=== PATIENT | male | born 1945 | race Caucasian/White ===

== ENCOUNTER → 2017-12-08 | Outpatient (CLI) | payer MEDICARE | LOC: M ADAMS 09:25 | DX: J20.9 Acute bronchitis, unspecified (principal); R06.02 Shortness of breath | CPT/HCPCS: 71046 ==

== ENCOUNTER → 2018-10-01 | Outpatient (CLI) | payer MEDICARE ==
[~2018-10-01] MED LIST: IBUP800T; LEVA500T; MUSINEX; NICO21DI4; PERC5TAB8
--- NOTE | 2018-10-01 12:12 | REP ---
Chest two views HISTORY: Acute bronchitis Comparison: 12/08/2017 The lungs are clear. There is blunting of the left costophrenic angle due to pleural thickening. The heart is normal in size. The pulmonary vasculature is normal in appearance. The bony structure is intact. IMPRESSION: No acute disease. Electronically Signed by Rigo Nash MD 10/01/2018 12:03 P
== END ==
LOC: M ADAMS 11:44
PROVIDERS: ATTEND Physician Assistant Medical
DX: J20.9 Acute bronchitis, unspecified (principal)

== ENCOUNTER → 2018-10-01 | Outpatient (REF) | payer MEDICARE ==
[2018-10-01 20:12] LABS: BASO % 0.2 % (0.0-1.0); HEMATOCRIT 52.4 % (42.0-52.0); HEMOGLOBIN 17.2 g/dl (13.5-17.5); LYMPH # 1.4 10^3/uL (1.5-4.5); LYMPH % 17.2 % (24.0-44.0); MEAN CORPUSCULAR HEMOGLOBIN 33.3 pg (27.0-33.0); MEAN CORPUSCULAR HGB CONC 32.8 g/dl (32.0-36.5); MEAN CORPUSCULAR VOLUME 101.4 fl (80.0-96.0); MONO # 0.6 10^3/uL (0.0-0.8); MONO % 7.1 % (0.0-5.0); NEUTROPHILS # 6.1 10^3/uL (1.8-7.7); NEUTROPHILS % 75.1 % (36.0-66.0); PLATELET COUNT, AUTOMATED 181 10^3/uL (150-450); RED BLOOD COUNT 5.17 10^6/uL (4.30-6.10); WHITE BLOOD COUNT 8.1 10^3/uL (4.0-10.0)
== END ==
LOC: M LAB REF 19:21
PROVIDERS: ATTEND Physician Assistant Medical
DX: J20.9 Acute bronchitis, unspecified (principal)

== ENCOUNTER 2019-11-19 15:30 | Emergency (ER) | payer MEDICARE ==
[~2019-11-19] VITALS: Ht 188 cm; Wt 118.2 kg
[2019-11-19] MEDS ORDERED: NS 1,000 ML IV ONE (16:45)
[2019-11-19 17:21] LABS: BASO # 0.1 10^3/uL (0.0-0.2); BASO % 0.5 % (0.0-1.0); EOS # 0.1 10^3/uL (0.0-0.5); EOS % 0.5 % (0.0-3.0); HEMATOCRIT 53.1 % (42.0-52.0); HEMOGLOBIN 17.8 g/dl (13.5-17.5); LYMPH # 1.5 10^3/uL (1.5-5.0); LYMPH % 12.3 % (24.0-44.0); MEAN CORPUSCULAR HEMOGLOBIN 33.4 pg (27.0-33.0); MEAN CORPUSCULAR HGB CONC 33.5 g/dl (32.0-36.5); MEAN CORPUSCULAR VOLUME 99.6 fl (80.0-96.0); MONO # 0.6 10^3/uL (0.0-0.8); MONO % 5.3 % (0.0-5.0); NEUTROPHILS # 9.7 10^3/uL (1.5-8.5); NEUTROPHILS % 80.8 % (36.0-66.0); PLATELET COUNT, AUTOMATED 109 10^3/uL (150-450); RED BLOOD COUNT 5.33 10^6/uL (4.30-6.10); WHITE BLOOD COUNT 11.9 10^3/uL (4.0-10.0)
[2019-11-19 17:35] LABS: CALCIUM LEVEL 9.4 MG/DL (8.8-10.2); CREATININE FOR GFR 1.61 MG/DL (0.70-1.30); GLOMERULAR FILTRATION RATE 45.1 (>42); POTASSIUM SERUM 5.8 MEQ/L (3.5-5.1)
--- NOTE | 2019-11-19 17:59 | REP ---
LUMBAR SPINE SERIES: FIVE VIEWS. HISTORY: Low back pain and tingling in the feet. FINDINGS: Lumbar vertebral body heights are preserved. There is straightening of the normal lumbar lordosis. There is degenerative disc narrowing at L3-4, and to a lesser extent, at L4-5 with discogenic spurring noted, particularly at L3-4. There is evidence of calcification of the margin of a posteriorly bulging disc at L3-4, and lateral film suggests spinal stenosis at L3-4. Similar less pronounced changes seen at L2-3. No spondylolysis or spondylolisthesis is seen. There is some facet hypertrophy at L5-S1 and L4-5 bilaterally, mild in degree. Sacrum and SI joints are intact. Psoas margins are symmetric. The abdominal aorta appears tortuous and may be ectatic. It is faintly calcified. There are clips in the right upper quadrant of the abdomen. IMPRESSION: 1. Degenerative disc disease. Findings suggestive of spinal stenosis at L3-4 and possibly at L2-3 due to bulging discs. 2. Tortuous and possibly ectatic, faintly calcified abdominal aorta. 3. No acute bony abnormality. Electronically Signed by Job Tineo MD 11/19/2019 06:47 P
[2019-11-19 18:44] LABS: POTASSIUM SERUM 4.3 MEQ/L (3.5-5.1)
[2019-11-19 19:15] VITALS: BP 141/94
--- NOTE | 2019-11-20 13:03 | ED PDOC ---
Post-Departure Follow-Up dr paz faxed formal report of ls spine for fu Chapin Cisneros MD November 20, 2019 13:03
== END 2019-11-19 19:20 | disposition home or self-care (01) ==
LOC: M ED 15:30
DX: M51.37 Other intervertebral disc degeneration, lumbosacral region (principal); S39.012A Strain of muscle, fascia and tendon of lower back, initial encounter; X50.0XXA Overexertion from strenuous movement or load, initial encounter; Y92.89 Other specified places as the place of occurrence of the external cause; E86.0 Dehydration; R94.5 Abnormal results of liver function studies; G43.909 Migraine, unspecified, not intractable, without status migrainosus; K21.9 Gastro-esophageal reflux disease without esophagitis; F17.200 Nicotine dependence, unspecified, uncomplicated

== ENCOUNTER 2019-11-23 12:36 | Inpatient (IN) | payer MEDICARE ==
[~2019-11-23] VITALS: Ht 188 cm; Wt 114.0 kg
[2019-11-23] MEDS ORDERED: NS 1,000 ML IV ONE (13:15)
[2019-11-23 13:47] LABS: BASO % 0.4 % (0.0-1.0); EOS # 0.4 10^3/uL (0.0-0.5); EOS % 4.2 % (0.0-3.0); HEMATOCRIT 47.2 % (42.0-52.0); HEMOGLOBIN 16.1 g/dl (13.5-17.5); LYMPH % 21.5 % (24.0-44.0); MEAN CORPUSCULAR HEMOGLOBIN 33.1 pg (27.0-33.0); MEAN CORPUSCULAR HGB CONC 34.1 g/dl (32.0-36.5); MEAN CORPUSCULAR VOLUME 97.1 fl (80.0-96.0); MONO # 0.8 10^3/uL (0.0-0.8); MONO % 8.4 % (0.0-5.0); PLATELET COUNT, AUTOMATED 127 10^3/uL (150-450); RED BLOOD COUNT 4.86 10^6/uL (4.30-6.10); WHITE BLOOD COUNT 9.2 10^3/uL (4.0-10.0)
[2019-11-23 14:03] LABS: ALBUMIN 3.3 GM/DL (3.2-5.2); ALT/SGPT 52 U/L (12-78); BILIRUBIN,DIRECT 0.2 MG/DL (0.0-0.2); BILIRUBIN,TOTAL 0.7 MG/DL (0.2-1.0); BLOOD UREA NITROGEN 44 MG/DL (7-18); CALCIUM LEVEL 8.8 MG/DL (8.8-10.2); CARBON DIOXIDE LEVEL 26 MEQ/L (21-32); CHLORIDE LEVEL 107 MEQ/L (98-107); CPK CREATINE PHOSPHOKINASE 222 U/L (39-308); CREATININE FOR GFR 2.62 MG/DL (0.70-1.30); GLOMERULAR FILTRATION RATE 25.7 (>42); GLUCOSE, FASTING 104 MG/DL (70-100); POTASSIUM SERUM 4.6 MEQ/L (3.5-5.1); SODIUM LEVEL 138 MEQ/L (136-145); TOTAL PROTEIN 6.9 GM/DL (6.4-8.2)
[2019-11-23] MEDS ORDERED: NS 500 ML IV ONE (14:15)
--- NOTE | 2019-11-23 15:29 | REP ---
REASON: Acute renal failure. There are no priors for comparison. Prior contrast-enhanced chest CT, 01/22/2010, was reviewed. The descending thoracic aorta seen on this abdominal CT is massively ectatic, now measuring 6.5 cm, previously under 3 cm on the imaged portion seen on the prior exam. In addition, the aneurysm continues to just proximal to the aortoiliac bifurcation. At the bifurcation, the maximal AP dimension is 3.4 cm. Without intravenous contrast, I cannot assess properly for an acute aortic dissection. I suspect there is an acute aortic dissection, but contrast would be necessary for further evaluation. Limited evaluation of the liver, spleen, pancreas, adrenal glands, and kidneys show no gross abnormalities. Limited evaluation of the bowel loops and their mesenteries show no gross abnormalities. No free fluid or free air is seen in the abdomen or pelvis. There is sigmoid colon diverticulosis. There is no evidence of an intrapelvic or intra-abdominal mass or adenopathy. Bone window technique throughout the examination shows the osseous structures to be within normal limits. The lung bases are clear. 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 Contrast-enhanced examination is recommended. The finding might be critical. These findings were discussed with Lincoln Noe, the patient's healthcare provider at the time of this dictation. A follow up phone call was placed to Mr. Noe who relayed that Dr. Miller will evaluate the patient in the ER at this time and further determination on whether they wish to order a contrast enhanced examination will be made. Electronically Signed by Fernando Aguirre DO 11/23/2019 03:39 P
[2019-11-23] MEDS: NS 1,000 ML IV SCH ×2 (15:34→15:35)
[2019-11-23 15:35] LABS: OSMOLALITY SERUM 296 MOSM/KG (280-301)
[2019-11-23 15:36] LABS: CK-MB VALUE MASS 1.4 NG/ML (<3.6); MB/CK RELATIVE INDEX 0.63 (< OR =4); TROPONIN I < 0.02 NG/ML (< 0.10)
[2019-11-23] MEDS ORDERED: ACETAMINOPHEN TAB 650MG DOSE (2X325MG) PO PRN (16:00)
--- NOTE | 2019-11-23 16:19 | HPEPDOC ---
General Date of Admission 11/23/2019 Date of Service: November 23, 2019 Chief Complaint The patient is a 74-year-old male who presented to the hospital for follow up lab work. History of Present Illness Patient is a 74-year-old male with no significant past medical history and has not seen a provider in greater than 10 years. . He initially presented to the ER on 11/19/2019 with complaints of worsening weakness and cramping of both his lower extremities and back pain. Patient reports that at the time he was doing yard work in the backyard involving cutting tree branches manually. Patient noted that he was experiencing cramping of his legs after he sat down, soon progressed to worsening weakness of his lower extremities and pain. Patient came to the emergency room for further evaluation and workup. Upon arrival to emergency room, patient had reported that his strength has improved and pain was resolving. Patient had lab work completed that had revealed a creatinine of 1.6 and a normal CK level. Patient was advised to remain inpatient for IV fluid hydration. However, he refused to stay and was advised to follow up for repeat lab work on Sunday. Patient reported that on to Sunday. He was experiencing diarrhea about 5-10 episodes which prevented him from returning back for follow-up on Sunday. His niece, who is a registered nurse advised him to return to the hospital for follow-up lab work today (Wednesday 11/22). Upon arrival repeat lab work had revealed worsening creatinine to 2.6 with still normal CK. Patient had reported that today he was experiencing some discoloration of his right second digit toe. Patient had a CT scan of his abdomen, pelvis completed without contrast to evaluate his kidneys; report was pending. Hospitalist service was contacted for evaluation and admission for acute kidney injury. Currently patient denies any headache, nausea, vomiting, chest pain, shortness of breath, any significant change in his baseline cough. He denies any palpitations. Denies any active diarrhea. Denies any constipation or urinary discomfort. Patient does report decreased urination. . He also notes that he hasnt been consuming much fluid over the last several days. Denies any fevers / chills. Patient has noted that for his back pain, over last several days, hes been taking Aleve, Excedrin and Tylenol. Currently, he reports that his back pain has significantly improved but not resolved. Patient reports his appetite is currently normal. Denies any significant changes in his weight. He does not have a primary care provider is in the process of establishing care with Dr. Mcclendon. After evaluation, preliminary results of CT scan became available and show possibility of dissecting aortic aneurysm. Case was discussed with Dr. Miller and images were reviewed; unlikely that this is acute, however no emergent intervention at this time. Home Medications No Active Prescriptions or Reported Meds Allergies Coded Allergies: No Known Allergies (Verified , 01/18/10) Past Medical History Medical History Patient reports a remote history of pneumonia, pleurisy greater than 10 years ago Surgical History Cholecystectomy Appendectomy Family History - Family history was reviewed and is currently noncontributory - No history of malignancies Social History - Denies the use of alcohol, tobacco or illicit drugs - Denies recent travel or sick contacts - Lives with - Occupation; owned a [employer] Review of Systems Other systems 10 point review of systems complete, all negative otherwise stated in HPI Vital Signs - Vitals: BP 114/73, HR 73, RR 20, Sat 98%RA, Temp 97.9F - General: Lying in bed, Does not appear to be in any distress, Speaking in full sentences, AAOx3 - HEENT: NC, AT, PERRLA, EOMI - CVS: RRR, +S1S2 - Lungs: Fair air entry bilaterally, No appreciable wheezing / rales / rhonchi - Abdomen: Soft, Non-distended, Non-tender - Extremities: No lower extremity edema, No calf tenderness - Neuro: No focal motor or sensory deficit - Skin: No visible rashes Laboratory Data Labs 24H Laboratory Tests 2 11/23/19 13:24: Immature Granulocyte % (Auto) 0.5, Neutrophils (%) (Auto) 65.0, Lymphocytes (%) (Auto) 21.5L, Monocytes (%) (Auto) 8.4H, Eosinophils (%) (Auto) 4.2H, Basophils (%) (Auto) 0.4, Neutrophils # (Auto) 6.0, Lymphocytes # (Auto) 2.0, Monocytes # (Auto) 0.8, Eosinophils # (Auto) 0.4, Basophils # (Auto) 0.0, Nucleated Red Blood Cells % (auto) 0.0, Anion Gap 5L, Glomerular Filtration Rate 25.7L, Osmolality 296, Lactic Acid Level 1.2, Calcium Level 8.8, Total Bilirubin 0.7, Direct Bilirubin 0.2, Aspartate Amino Transf (AST/SGOT) 36, Alanine Aminotransferase (ALT/SGPT) 52, Alkaline Phosphatase 76, Total Creatine Kinase 222, Creatine Kinase MB 1.4, Creatine Kinase MB Relative Index 0.63, Troponin I < 0.02, Total Protein 6.9, Albumin 3.3, Albumin/Globulin Ratio 0.92L 11/23/19 14:02: Urine Random Osmolality 703 11/23/19 14:05: Urine Color YELLOW, Urine Appearance HAZY, Urine pH 5.0, Urine Specific [place] 1.020, Urine Protein 2+H, Urine Glucose (UA) NEGATIVE, Urine Ketones NEGATIVE, Urine Blood 2+H, Urine Nitrite NEGATIVE, Urine Bilirubin NEGATIVE, Urine Urobilinogen 0.2, Urine Leukocyte Esterase NEGATIVE, Urine WBC (Auto) 2, Urine RBC (Auto) 3, Urine Hyaline Casts (Auto) 0, Urine Bacteria (Auto) NEGATIVE, Urine Squamous Epithelial Cells 0, Urine Amorphous Sediment SMALLH, Urine Mucus (Auto) SMALL, Urine Sperm (Auto) CBC/BMP Laboratory Tests 11/23/19 13:24 Plan / VTE VTE Prophylaxis Ordered?: Yes Plan Plan Abdominal aortic aneurysm; possibly with dissection based on imaging - Remains hemodynamically stable - Currently has improvement of back pain - CT abdomen / pelvis without contrast (re: elevated Cr); preliminary report reveals possibly aortic aneurysm dissection - Will ensure BP and HR remain optimized - Case was discussed with Dr. Miller who will also be on consultation; appreciate their input - At this point; does not require emergent intervention given no significant match to clinical picture (ie: severely elevated blood pressures with intolerable pain) Acute kidney injury - possibly 2/2 pre-renal 2/2 poor oral intake / diarrhea, possibly 2/2 reduced blood flow, possibly 2/2 intra-renal etiology 2/2 chronic renal disease - Cr baseline unclear; last Cr compared against was 1.0 in 2009 - Cr on 11/18 on 1.6; has deteriorated since that point to 2.6 currently - After checking urine electrolytes, FENa: 0.5% - Will check renal US and renal doppler flow - Will avoid nephrotoxic medications - s/p 1.5 Liters of NS in ER - Will c/w IV fluid hydration Bilateral LE weakness - possibly 2/2 PVD - Presented on 11/19/2019 with back pain and progressive LE weakness / pain - Physical does reveal pulses at bilateral lower extremities - Will check duplex arterial US of bilateral LE Nicotine dependence - Patient has been strongly advised for nicotine / smoking cessation Obesity - BMI 30.9 - Complicating medical care DVT prophylaxis - Will start TEDs/Sequentials GINA SCALES MD November 23, 2019 15:43
[2019-11-23] MEDS ORDERED: NICOTINE 21MG/24HR 1 EA TRANSDERMAL TD ONE (16:45)
[2019-11-23 16:47] LABS: CHOLESTEROL LEVEL 172 MG/DL (<200); CHOLESTEROL RISK RATIO 4.777 (<5); HDL CHOLESTEROL 36 MG/DL (>40); LDL CHOLESTEROL 108 MG/DL (<100); NON-HDL-C 136 MG/DL; TRIGLYCERIDES LEVEL 138 MG/DL (<150)
[2019-11-23 17:55] LABS: HEMOGLOBIN A1c 5.5 %
[2019-11-23 18:00] VITALS: BP 158/77
--- NOTE | 2019-11-23 18:09 | REPVR ---
PROCEDURE INFORMATION: Exam: US Duplex Artery and Vein of the Abdominal and/or Reproductive Organs, Complete Exam date and time: 11/23/2019 5:37 PM Age: 74 years old Clinical indication: Abnormal findings; Abnormal lab test; Abnormal bun &/or creatinine; Additional info: Kris TECHNIQUE: Imaging protocol: Real-time duplex ultrasound scan of the arterial and venous flow of the abdominal and/or reproductive organs with B-mode, color Doppler flow and spectral waveform analysis with image documentation. Exam focused on the region of clinical concern. Complete exam. Duplex images required to evaluate vascular conditions. COMPARISON: No relevant prior studies available. FINDINGS: FINDINGS: Aortic Doppler: Aorta at the level of the renal arteries: PSV is 45 cm/s. Right renal Doppler: The right kidney is 12.6 cm in length. Renal artery: Origin/proximal: PSV 74 cm/s. Mid: PSV 70 cm/s. Distal: PSV 61 cm/s. Parenchyma: Segmental: Resistive indices are between 0.65 and 0.69. Acceleration times are between 0.42 and 0.50 s. Rounded intrarenal waveforms. Renal vein: Patent. RAR is 1.6. Left renal Doppler: The left kidney is 12.9 cm in length. Renal artery: Origin/proximal: PSV 124 cm/s. Mid: PSV 111 cm/s. Distal: PSV 95 cm/s. Parenchyma: Segmental: Resistive indices are between and 0.61 and 0.65. Acceleration times are between 0.42 and 0.67 s. Rounded intrarenal waveforms. Renal vein: Patent. RAR is 2.7. Reference: Renal artery peak systolic velocities (PSV). Normal is less than 180 cm/s. Resistive indices (RI). Normal value is ~0.60. The upper limit of normal is 0.70. RAR (renal to aortic ratio). Normal is <3.5. IMPRESSION: . No imaging findings to suggest renovascular hypertension. Electronically signed by: Maurice Flores On 11/23/2019 18:08:55 PM
[2019-11-23 18:52] LABS: CALCIUM LEVEL 8.6 MG/DL (8.8-10.2); CREATININE FOR GFR 2.42 MG/DL (0.70-1.30); GLOMERULAR FILTRATION RATE 28.2 (>42); MAGNESIUM LEVEL 2.1 MG/DL (1.8-2.4); POTASSIUM SERUM 4.2 MEQ/L (3.5-5.1)
[2019-11-23 20:00] VITALS: BP 119/73
[2019-11-24] VITALS: BP 116/77
[2019-11-24] MEDS: NS 1,000 ML IV SCH ×4 (03:39→21:53)
[2019-11-24 04:00] VITALS: BP 131/76
[2019-11-24 06:09] LABS: BASO # 0.1 10^3/uL (0.0-0.2); BASO % 0.6 % (0.0-1.0); EOS # 0.4 10^3/uL (0.0-0.5); EOS % 5.1 % (0.0-3.0); HEMATOCRIT 41.4 % (42.0-52.0); LYMPH # 2.1 10^3/uL (1.5-5.0); LYMPH % 26.7 % (24.0-44.0); MEAN CORPUSCULAR HEMOGLOBIN 33.8 pg (27.0-33.0); MEAN CORPUSCULAR HGB CONC 33.8 g/dl (32.0-36.5); MONO # 0.8 10^3/uL (0.0-0.8); MONO % 9.8 % (0.0-5.0); NEUTROPHILS # 4.6 10^3/uL (1.5-8.5); NEUTROPHILS % 57.4 % (36.0-66.0); PLATELET COUNT, AUTOMATED 141 10^3/uL (150-450); RED BLOOD COUNT 4.14 10^6/uL (4.30-6.10)
[2019-11-24 06:24] LABS: CALCIUM LEVEL 8.3 MG/DL (8.8-10.2); CREATININE FOR GFR 2.34 MG/DL (0.70-1.30); GLOMERULAR FILTRATION RATE 29.3 (>42); MAGNESIUM LEVEL 2.1 MG/DL (1.8-2.4); POTASSIUM SERUM 4.8 MEQ/L (3.5-5.1)
[2019-11-24 08:00] VITALS: BP 122/72
--- NOTE | 2019-11-24 08:00 | CR.PDOC ---
General Date of Consultation: November 24, 2019 Consultation REASON FOR CONSULTATION/CHIEF COMPLAINT: Incidental finding of thoracoabdominal aneurysm on noncontrast CT abdomen and pelvis HISTORY OF PRESENT ILLNESS: This is a very pleasant 74-year-old gentleman who was admitted for worsening renal insufficiency and had a noncontrast CT of the abdomen and pelvis in the ER during his workup. Incidentally, a finding of 6.5 cm thoracoabdominal aneurysm prompted a vascular surgery consult. There was concern by the radiologist that the patient may be having an acute dissection. I reassured both the ER physician and the hospitalist that with systolic blood pressure of 120, normotensive, and little to no back pain, and acute dissection would be unlikely. Also, it is less likely to have dissection acutely and an aneurysmal vessel, but more likely that he may have had a dissection in the past that led to an aneurysmal vessel. It is possible he did have a dissection at one point, but we cannot tell this from the noncontrast CT. The subtle changes in grayscale within the aorta could be due to a dissection, could be due to mural thrombus, could be due to blood circulation. We will need an contrast CT of the chest abdomen and pelvis to fully evaluate the thoracoabdominal aneurysm. This can be done once the patient's renal function improves. To rule out limited bloodflow to one or both kidneys as a source of renal insufficiency we obtained a renal duplex ultrasound. There was good flow to both kidneys. I believe the patient's renal function is more likely related to dehydration, worsened after days of diarrhea, and will hopefully it will improve with supportive care, IV fluids, and if needed a nephrology consult. We will continue to follow along. I discussed the natural history of aortic aneurysms with the patient. He said he is familiar with the phenomenon as he has had friends who've had aortic aneurysms, some that of ruptured. He also describes experience with aneurysm rupture in cows, which I have not heard of, but was interesting to discuss. Additionally, I did review the patient's arterial duplex. He has triphasic flow to the knee bilaterally, but some tibial disease bilaterally, worse on the right. The distal anterior tibial artery is not visualized, which may be contributing to the discoloration in the right second toe, as this is the Angiosome for the dorsal foot and second toe. However, overall the patient's A BIs are greater than 1 bilaterally and he seems to have more than adequate flow with very warm feet and less than 1 second capillary refill on exam. ALLERGIES: Please see below. HOME MEDICATIONS: Please see below. PAST MEDICAL HISTORY: 1. Tobacco abuse 2. Peripheral vascular disease 3. Thoracoabdominal aneurysm PAST SURGICAL HISTORY: 1. Cholecystectomy 2. Appendectomy FAMILY HISTORY: Heart disease SOCIAL HISTORY: Patient lives alone. He was smoking regularly up until this admission. He o ccasionally drinks wine, but not every day. He denies illicit drug use. REVIEW OF SYSTEMS: CONSTITUTIONAL: Positive fatigue HEENT: No new vision changes CARDIOVASCULAR: No chest pain RESPIRATORY: Occasional shortness of breath with exertion, occasional cough GENITOURINARY: No dysuria MUSCULOSKELETAL: Occasional back pain, blue discoloration right second toe GASTROINTESTINAL: Denies nausea vomiting constipation. Positive recent episodes of diarrhea SKIN: Denies rashes or skin cancer NEUROLOGICAL: Denies headaches or seizures. Denies TIA or CVA PSYCHIATRIC: Denies anxiety or depression ENDOCRINE: Denies diabetes or thyroid disease HEMATOLOGIC/LYMPHATIC: Denies anemia ALLERGIC/IMMUNOLOGIC: Denies immunologic disease is PHYSICAL EXAMINATION: VITAL SIGNS: Please see below. GENERAL APPEARANCE: Medically stable. HEENT: Normocephalic. Poor dentition. RESPIRATORY: Slightly coarse breath sounds bilaterally. No wheezes auscultated. CARDIOVASCULAR: Regular rate and rhythm. ABDOMEN: Soft nontender nondistended. EXTREMITIES: Bilateral lower extremities are warm and well perfused. The pulses are not palpable but he has signals at the DP and PT bilaterally: Monophasic right TP, triphasic right PT, biphasic left DP, biphasic left PT. The right second toe does in fact have some distal blue discoloration, but is minimally tender. The other toes do not appear to be discolored. No wounds or ulcers are noted. NEUROLOGICAL: Alert and oriented 3. Moves all extremities equally. No focal deficits noted. PSYCHIATRIC: Pleasant and cooperative with the exam. LABORATORY DATA: Please see below. ASSESSMENT/PLAN: Very pleasant 74-year-old gentleman with incidental finding of 6.5 cm thoracoabdominal aortic aneurysm 1. Once renal function has improved, the patient will need a CTA of the chest abdomen and pelvis to fully evaluate the extent of the thoracoabdominal aneurysm. 2. For now, no urgent imaging is needed. Eventually, if the patient requires repair, we will set him up with a referral to [facility]. 3. Regarding his right second toe, he is fairly asymptomatic. He has no ulceration present. This could be related to an embolic event or it could be related to chronic vascular disease in the right anterior tibial artery. At this point, I do not recommend urgent intervention has any endovascular interrogation we would perform would require contrast and the patient has acute renal failure. However, if his toe does not heal, if he develops ulcerations, if he develops worsening pain or starts to develop claudication, we could certainly perform an arteriogram at a later date and see if there is anything we can improve in his distal flow. No urgency at this time. 4. We would recommend aspirin and Plavix daily for life for chronic vascular disease. 5. Strongly recommend discontinuing nicotine patch. Instead, would recommend Chantix or Wellbutrin as pharmacologic aid to smoking cessation as needed. Also anxiety medicine can be prescribed while the patient is in the hospital. Nicotin e patches cause severe vasoconstriction of the distal fingers and toes, hands and feet. It is continuous vasoconstriction, unlike smoking which provides breaks between nicotine doses. A 21 mg nicotine patch is extremely detrimental to someone with any kind of peripheral vascular disease. We appreciate the opportunity to participate in the care of this patient. Vital Signs/I&O Vital Signs Date Time Temp Pulse Resp B/P (MAP) Pulse Ox O2 Delivery O2 Flow Rate FiO2 11/24/19 04:00 97.8 71 19 131/76 (94) 99 Room Air I&O- Last 24 Hours up to 6 AM 11/24/19 05:59 Intake Total 2820 ml Output Total 600 ml Balance 2220 ml Laboratory Data Labs 24H Laboratory Tests 2 11/23/19 13:24: Immature Granulocyte % (Auto) 0.5, Neutrophils (%) (Auto) 65.0, Lymphocytes (%) (Auto) 21.5L, Monocytes (%) (Auto) 8.4H, Eosinophils (%) (Auto) 4.2H, Basophils (%) (Auto) 0.4, Neutrophils # (Auto) 6.0, Lymphocytes # (Auto) 2.0, Monocytes # (Auto) 0.8, Eosinophils # (Auto) 0.4, Basophils # (Auto) 0.0, Nucleated Red Blood Cells % (auto) 0.0, Anion Gap 5L, Glomerular Filtration Rate 25.7L, Estimated Mean Plasma Glucose 111H, Hemoglobin A1c 5.5, Osmolality 296, Lactic Acid Level 1.2, Calcium Level 8.8, Total Bilirubin 0.7, Direct Bilirubin 0.2, Aspartate Amino Transf (AST/SGOT) 36, Alanine Aminotransferase (ALT/SGPT) 52, Alkaline Phosphatase 76, Total Creatine Kinase 222, Creatine Kinase MB 1.4, Creatine Kinase MB Relative Index 0.63, Troponin I < 0.02, Total Protein 6.9, Albumin 3.3, Albumin/Globulin Ratio 0.92L, Triglycerides Level 138, Total Cholesterol 172, LDL Cholesterol 108H, Non-HDL Cholesterol (LDL + VLDL) 136, Total HDL Cholesterol 36L, Cholesterol/HDL Ratio 4.777 11/23/19 14:02: Urine Random Osmolality 703, Urine Random Creatinine 201.0, Urine Random Sodium 54, Urine Random Urea Nitrogen 1247 11/23/19 14:05: Urine Color YELLOW, Urine Appearance HAZY, Urine pH 5.0, Urine Specific [place] 1.020, Urine Protein 2+H, Urine Glucose (UA) NEGATIVE, Urine Ketones NEGATIVE, Urine Blood 2+H, Urine Nitrite NEGATIVE, Urine Bilirubin NEGATIVE, Urine Urobilinogen 0.2, Urine Leukocyte Esterase NEGATIVE, Urine WBC (Auto) 2, Urine RBC (Auto) 3, Urine Hyaline Casts (Auto) 0, Urine Bacteria (Auto) NEGATIVE, Urine Squamous Epithelial Cells 0, Urine Amorphous Sediment SMALLH, Urine Mucus (Auto) SMALL, Urine Sperm (Auto) 11/23/19 18:18: Anion Gap 6L, Glomerular Filtration Rate 28.2L, Calcium Level 8.6L, Magnesium Level 2.1 11/24/19 05:23: Immature Granulocyte % (Auto) 0.4, Neutrophils (%) (Auto) 57.4, Lymphocytes (%) (Auto) 26.7, Monocytes (%) (Auto) 9.8H, Eosinophils (%) (Auto) 5.1H, Basophils (%) (Auto) 0.6, Neutrophils # (Auto) 4.6, Lymphocytes # (Auto) 2.1, Monocytes # (Auto) 0.8, Eosinophils # (Auto) 0.4, Basophils # (Auto) 0.1, Nucleated Red Blood Cells % (auto) 0.0, Anion Gap 5L, Glomerular Filtration Rate 29.3L, Calcium Level 8.3L, Magnesium Level 2.1 CBC/BMP Laboratory Tests 11/23/19 13:24 11/23/19 18:18 11/24/19 05:23 Allergies Coded Allergies: No Known Allergies (Verified , 01/18/10) Home Medications No Active Prescriptions or Reported Meds VIPIN COHEN MD November 24, 2019 08:00
[2019-11-24] MEDS ORDERED: NS 1,000 ML IV ONE (08:45)
[2019-11-24] MEDS ORDERED: NICOTINE 21MG/24HR 1 EA TRANSDERMAL TD SCH (09:00)
--- NOTE | 2019-11-24 09:25 | IPNPDOC ---
Text Note Date of Service The patient was seen on 11/24/19. NOTE Subjective: Patient is a 74-year-old male with no significant past medical history and has not seen a provider in greater than 10 years. . He initially presented to the ER on 11/19/2019 with complaints of worsening weakness and cramping of both his lower extremities and back pain. Patient reports that at the time he was doing yard work in the backyard involving cutting tree branches manually. Patient noted that he was experiencing cramping of his legs after he sat down, soon progressed to worsening weakness of his lower extremities and pain. Patient came to the emergency room for further evaluation and workup. Upon arrival to emergency room, patient had reported that his strength has improved and pain was resolving. Patient had lab work completed that had revealed a creatinine of 1.6 and a normal CK level. Patient was advised to remain inpatient for IV fluid hydration. However, he refused to stay and was advised to follow up for repeat lab work on Sunday. Patient reported that on to Sunday. He was experiencing diarrhea about 5-10 episodes which prevented him from returning back for follow-up on Sunday. His niece, who is a registered nurse advised him to return to the hospital for follow-up lab work today (Wednesday 11/22). Upon arrival repeat lab work had revealed worsening creatinine to 2.6 with still normal CK. Patient had reported that today he was experiencing some discoloration of his right second digit toe. Patient had a CT scan of his abdomen, pelvis completed without contrast to evaluate his kidneys; report was pending. Hospitalist service was contacted for evaluation and admission for acute kidney injury. After evaluation, preliminary results of CT scan became available and show possibility of dissecting aortic aneurysm. Case was discussed with Dr. Miller and images were reviewed; unlikely that this is acute, however no emergent intervention at this time. Patient was seen and examined at the bedside this morning. Patient reports they do not experiencing chest pain, shortness breath, palpitations. No significant cough, nausea, vomiting, abdominal pain, diarrhea, or urinary discomfort. They do report some difficulty with urination. They report that they're getting tired, sitting in bed all day. 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 Contrast-enhanced examination is recommended. The finding might be critical. - Will continue to keep BP and HR optimized - Dr. Miller on consultation; appreciate their input - Does not require emergent intervention at this time; will need to get contrast enhanced CT (chest / abdomen / pelvis) once renal function improves Acute kidney injury - possibly 2/2 pre-renal 2/2 poor oral intake / diarrhea, possibly 2/2 intra-renal etiology 2/2 chronic renal disease - Cr baseline unclear; last Cr compared against was 1.0 in 2009 - Cr on 11/18 on 1.6; has deteriorated since that point to 2.6 currently - FENa: 0.5% - Renal US pending - Renal Doppler flow 11/22: No imaging findings to suggest renovascular hypertens ion. - Will continue to avoid nephrotoxic medications - s/p 1.5 Liters of NS in ER - Will increase rate of IV fluid hydration and provide fluid bolus - Repeat BMP today at 3PM Bilateral LE weakness - possibly 2/2 PVD - Presented on 11/19/2019 with back pain and progressive LE weakness / pain - Physical does reveal pulses at bilateral lower extremities - Will go for duplex arterial US of bilateral LE today Nicotine dependence - Patient has been strongly advised for nicotine / smoking cessation - c/w Nicotine patch Obesity - BMI 30.9 - Complicating medical care DVT prophylaxis - c/w TEDs/Sequentials Disposition: - Will start activity as tolerated - Will start PT VS,Fishbone, I+O VS, Fishbone, I+O Laboratory Tests 11/23/19 13:24 11/23/19 18:18 11/24/19 05:23 Vital Signs Date Time Temp Pulse Resp B/P (MAP) Pulse Ox O2 Delivery O2 Flow Rate FiO2 11/24/19 08:00 97.6 63 17 122/72 (89) 95 Room Air I&O- Last 24 Hours up to 6 AM 11/24/19 06:00 Intake Total 3420 ml Output Total 600 ml Balance 2820 ml GINA SCALES MD November 24, 2019 09:25
--- NOTE | 2019-11-24 10:28 | REP ---
Bilateral lower extremity duplex arterial ultrasound: History: Claudication. Findings: Ankle brachial indices are normal measured at 1.35 on the right and 1.15 on the left. Mild plaquing is seen. No significant stenosis is seen. In the right lower extremity, the distal anterior tibial artery is not seen. A large vessel laterally feet. Foot likely from peroneal branch. Study is otherwise unremarkable. Velocity chart right lower extremity arteries: Right CF A PSV 55 cm/S Profunda 48 Proximal SFA 79 Mid SFA 63 Distal SFA [address] INTERPRETER 25 Tibioperoneal trunk [address] INTERPRETER [address] INTERPRETER 78 Distal AT A not seen. Velocity chart left lower extremity arteries: Left CF A PSV 60 cm/S Profunda 52 Proximal SFA 69 Mid SFA 70 Distal SFA 52 Popliteal 56 Proximal AT A 77 Tibioperoneal trunk [address] INTERPRETER [address] INTERPRETER 63 Distal AT A 62 Electronically Signed by Job Tineo MD 11/24/2019 10:19 A
[2019-11-24 12:00] VITALS: BP 122/71
[2019-11-24 15:34] LABS: CALCIUM LEVEL 8.1 MG/DL (8.8-10.2); CREATININE FOR GFR 2.24 MG/DL (0.70-1.30); GLOMERULAR FILTRATION RATE 30.8 (>42); POTASSIUM SERUM 4.8 MEQ/L (3.5-5.1)
[2019-11-24 16:00] VITALS: BP 129/73
[2019-11-24 20:00] VITALS: BP 121/71
[2019-11-25] VITALS: BP 132/79
[2019-11-25 04:00] VITALS: BP 130/78
[2019-11-25] MEDS: NS 1,000 ML IV SCH ×2 (04:16→11:24)
[2019-11-25 05:49] LABS: BASO # 0.1 10^3/uL (0.0-0.2); BASO % 0.7 % (0.0-1.0); EOS # 0.4 10^3/uL (0.0-0.5); EOS % 5.4 % (0.0-3.0); HEMATOCRIT 40.4 % (42.0-52.0); HEMOGLOBIN 13.3 g/dl (13.5-17.5); LYMPH # 2.1 10^3/uL (1.5-5.0); LYMPH % 28.9 % (24.0-44.0); MEAN CORPUSCULAR HEMOGLOBIN 33.2 pg (27.0-33.0); MEAN CORPUSCULAR HGB CONC 32.9 g/dl (32.0-36.5); MEAN CORPUSCULAR VOLUME 100.7 fl (80.0-96.0); MONO # 0.7 10^3/uL (0.0-0.8); NEUTROPHILS % 55.4 % (36.0-66.0); PLATELET COUNT, AUTOMATED 132 10^3/uL (150-450); RED BLOOD COUNT 4.01 10^6/uL (4.30-6.10); WHITE BLOOD COUNT 7.2 10^3/uL (4.0-10.0)
[2019-11-25 06:13] LABS: CALCIUM LEVEL 8.1 MG/DL (8.8-10.2); CREATININE FOR GFR 2.09 MG/DL (0.70-1.30); GLOMERULAR FILTRATION RATE 33.4 (>42); POTASSIUM SERUM 4.5 MEQ/L (3.5-5.1)
[2019-11-25 08:00] VITALS: BP 137/80
[2019-11-25] MEDS ORDERED: ASPIRIN 81 MG CHEW TABLET PO SCH (09:00)
--- NOTE | 2019-11-25 10:59 | IPNPDOC ---
Text Note Date of Service The patient was seen on 11/25/19. NOTE Subjective: No any acute events overnight. Patient denies fever, chills nausea, vomiting, chest pain, palpitations, diarrhea or dysuria Objective: PHYSICAL EXAMINATION ON DISCHARGE: VITAL SIGNS: Please see below. GENERAL: awake, alert, NAD HEENT: NCAT, anicteric sclera, HYUN NECK: supple, no JVD CARDIOVASCULAR EXAMINATION: NS1S2, regular rate/rhythm RESPIRATORY EXAMINATION: CTA b/l, no wheezes/rales/rhonchi ABDOMINAL EXAMINATION: positive bowel sounds x 4, NT EXTREMITIES: no cyanosis, clubbing, edema SKIN: warm, no rashes. NEUROLOGICAL EXAMINATION: AAO x 3, no motor/sensory deficits PSYCHIATRIC EXAMINATION: calm, normal affect Assessment and plan Patient is 74 years old male with past medical history of active smoking, peripheral vascular diseases who was admitted with ALEJANDRA most likely secondary to dehydration due to diarrhea. Also patient was found to have incidentally on a CAT scan possibility of dissecting aortic aneurysm. Case was discussed with Dr. Miller and images were reviewed; unlikely that this is acute, however no emergent intervention at this time. Abdominal aortic aneurysm Unlikely its acute given absence of typical clinical presentation I talked to Dr. Miller about possible surgical intervention. Dr. Miller recommended follow-up with PCP and possible referral to [facility] for triple AAA repair. Our plan to continue hydration in order to improve kidney function. Patient will be discharged with close follow-up with primary care physician, he will be given a referral to [facility] for consult and imaging study. Atherosclerosis Patient has 22.8% current 10 year ASCVD risk Patient advised to quit smoking Aspirin 81 mg Atorvastatin 40 mg Acute kidney injury Multifactorial. Most likely due to dehydration secondary to diarrhea. Doppler ultrasound showed No imaging findings to suggest renovascular hypertension. Improved today Continue hydration Bilateral LE weakness Resolved. Most likely secondary to electrolyte imbalance superimposed with PVD Doppler ultrasound showed Ankle brachial indices are normal measured at 1.35 on the right and 1.15 on the left. Mild plaquing is seen. No significant stenosis is seen. In the right lower extremity, the distal anterior tibial artery is not seen. A large vessel laterally feet. Foot likely from peroneal branch. Study is otherwise unremarkable. Nicotine dependence I will DC nicotine patch due to vascular constriction as a side effect Pharmacological treatment was offered, but patient declined Obesity Complicating medical care VS,Fishroxanee, I+O VS, Fishbone, I+O Laboratory Tests 11/24/19 14:41 11/25/19 05:16 Vital Signs Date Time Temp Pulse Resp B/P (MAP) Pulse Ox O2 Delivery O2 Flow Rate FiO2 11/25/19 08:00 97.9 62 18 137/80 (99) 98 Room Air I&O- Last 24 Hours up to 6 AM 11/25/19 06:00 Intake Total 2490 ml Output Total 1025 ml Balance 1465 ml CAMILLA NG DO November 25, 2019 10:59
[2019-11-25 12:00] VITALS: BP 141/84
[2019-11-25] MEDS: ATORVASTATIN 20 MG TAB PO SCH ×2 (13:00→13:02)
[2019-11-25] MEDS ORDERED: ASPI81CH8 PO (13:50)
[2019-11-25] MEDS ORDERED: ATOR1TAB21 PO (13:50)
[2019-11-25] MEDS ORDERED: ACET1TAB55 PO (13:50)
--- NOTE | 2019-11-25 15:54 | DS.PDOC ---
Discharge Summary General Date of Admission November 23, 2019 at 15:53 Date of Discharge 11/25/19 Discharge Summary PROCEDURES PERFORMED DURING STAY: [None]. ADMITTING DIAGNOSES: Bilateral LE weakness Acute kidney injury Abdominal aortic aneurysm Atherosclerosis Diarrhea Nicotine dependence Obesity DISCHARGE DIAGNOSES: Bilateral LE weakness Acute kidney injury Abdominal aortic aneurysm Atherosclerosis Diarrhea Nicotine dependence Obesity COMPLICATIONS/CHIEF COMPLAINT: Acute Renal Failure. HISTORY OF PRESENT ILLNESS: Patient is 74 years old male with past medical history of active smoking, peripheral vascular diseases who was admitted with ALEJANDRA most likely secondary to dehydration due to diarrhea. Also patient was found to have incidentally on a CAT scan possibility of dissecting aortic aneurysm. Case was discussed with Dr. Miller and images were reviewed; unlikely that this is acute, however no emergent intervention at this time. Abdominal aortic aneurysm Unlikely its acute given absence of typical clinical presentation I talked to Dr. Miller about possible surgical intervention. Dr. Miller recommended follow-up with PCP and possible referral to [facility] for triple AAA repair. Patient will be discharged with close follow-up with primary care physician, he will be given a referral to [facility] for consult and imaging study. Recommended to check BMP in 2-3 days Atherosclerosis Patient has 22.8% current 10 year ASCVD risk Patient advised to quit smoking Aspirin 81 mg Atorvastatin 40 mg Acute kidney injury Multifactorial. Most likely due to dehydration secondary to diarrhea. Doppler ultrasound showed No imaging findings to suggest renovascular hypertension. Improved today Continue hydration in the outpatient settings Bilateral LE weakness Resolved. Most likely secondary to electrolyte imbalance superimposed with PVD Doppler ultrasound showed Ankle brachial indices are normal measured at 1.35 on the right and 1.15 on the left. Mild plaquing is seen. No significant stenosis is seen. In the right lower extremity, the distal anterior tibial artery is not seen. A large vessel laterally feet. Foot likely from peroneal branch. Study is otherwise unremarkable. Nicotine dependence I will DC nicotine patch due to vascular constriction as a side effect Pharmacological treatment was offered, but patient declined Obesity Complicating medical care HOSPITAL COURSE: Following issue addressed DISCHARGE MEDICATIONS: Please see below. ALLERGIES: Please see below. PHYSICAL EXAMINATION ON DISCHARGE: VITAL SIGNS: Please see below. GENERAL: awake, alert, NAD HEENT: NCAT, anicteric sclera, HYUN NECK: supple, no JVD CARDIOVASCULAR EXAMINATION: NS1S2, regular rate/rhythm RESPIRATORY EXAMINATION: CTA b/l, no wheezes/rales/rhonchi ABDOMINAL EXAMINATION: positive bowel sounds x 4, NT EXTREMITIES: no cyanosis, clubbing, edema SKIN: warm, no rashes. NEUROLOGICAL EXAMINATION: AAO x 3, no motor/sensory deficits PSYCHIATRIC EXAMINATION: calm, normal affect LABORATORY DATA: Please see below. IMAGING: REASON: Acute renal failure. There are no priors for comparison. Prior contrast-enhanced chest CT, 01/22/2010, was reviewed. The descending thoracic aorta seen on this abdominal CT is massively ectatic, now measuring 6.5 cm, previously under 3 cm on the imaged portion seen on the prior exam. In addition, the aneurysm continues to just proximal to the aortoiliac bifurcation. At the bifurcation, the maximal AP dimension is 3.4 cm. Without intravenous contrast, I cannot assess properly for an acute aortic dissection. I suspect there is an acute aortic dissection, but contrast would be necessary for further evaluation. Limited evaluation of the liver, spleen, pancreas, adrenal glands, and kidneys show no gross abnormalities. Limited evaluation of the bowel loops and their mesenteries show no gross abnormalities. No free fluid or free air is seen in the abdomen or pelvis. There is sigmoid colon diverticulosis. There is no evidence of an intrapelvic or intra-abdominal mass or adenopathy. Bone window technique throughout the examination shows the osseous structures to be within normal limits. The lung bases are clear. 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 Contrast-enhanced examination is recommended. The finding might be critical. These findings were discussed with Lincoln Noe, the patient's healthcare provider at the time of this dictation. A follow up phone call was placed to Mr. Noe who relayed that Dr. Miller will evaluate the patient in the ER at this time and further determination on whether they wish to order a contrast enhanced examination will be made. Electronically Signed by Fernando Aguirre DO 11/23/2019 03:39 P PROGNOSIS: Fair ACTIVITY: [As tolerated]. DIET: Cardiac DISCHARGE PLAN: Home DISCHARGE INSTRUCTIONS: Patient will need to follow with PCP in 2-3 days, repeat BMP in 2-3 days, patient will need to get referral from PCP to [facility] for imaging study and possible AAA repair ITEMS TO FOLLOWUP ON ON OUTPATIENT: With PCP DISCHARGE CONDITION: [Stable]. TIME SPENT ON DISCHARGE: Greater than 20 minutes. Vital Signs/I&Os Vital Signs Date Time Temp Pulse Resp B/P (MAP) Pulse Ox O2 Delivery O2 Flow Rate FiO2 11/25/19 12:00 97.2 59 18 141/84 (103) 100 Room Air I&O- Last 24 Hours up to 6 AM 11/25/19 06:00 Intake Total 2490 ml Output Total 1025 ml Balance 1465 ml Laboratory Data Labs 24H Laboratory Tests 2 11/25/19 05:16: Immature Granulocyte % (Auto) 0.6, Neutrophils (%) (Auto) 55.4, Lymphocytes (%) (Auto) 28.9, Monocytes (%) (Auto) 9.0H, Eosinophils (%) (Auto) 5.4H, Basophils (%) (Auto) 0.7, Neutrophils # (Auto) 4.0, Lymphocytes # (Auto) 2.1, Monocytes # (Auto) 0.7, Eosinophils # (Auto) 0.4, Basophils # (Auto) 0.1, Nucleated Red Blood Cells % (auto) 0.0, Anion Gap 5L, Glomerular Filtration Rate 33.4L, Calci um Level 8.1L, Magnesium Level 2.0 CBC/BMP Laboratory Tests 11/25/19 05:16 Discharge Medications Scheduled Aspirin (Children's Aspirin) 81 Mg Tab.chew, 81 MG PO DAILY Atorvastatin Calcium (Atorvastatin Calcium) 20 Mg Tablet, 40 MG PO DAILY Scheduled PRN Acetaminophen (Acetaminophen) 325 Mg Tablet, 650 MG PO Q4H PRN for PAIN OR FEVER Allergies Coded Allergies: No Known Allergies (Verified , 01/18/10) CAMILLA GN DO November 25, 2019 15:54
== END 2019-11-25 15:30 | disposition home or self-care (01) | DRG 641 ==
LOC: M ED 12:36 → M ED INP 15:53 → ENRESERV 16:33 → M PCU 17:55
PROVIDERS: ADMIT Internal Medicine; ATTEND Internal Medicine
DX: E86.0 Dehydration (principal); N17.9 Acute kidney failure, unspecified; I71.6 Thoracoabdominal aortic aneurysm, without rupture; I73.9 Peripheral vascular disease, unspecified; M62.81 Muscle weakness (generalized); R19.7 Diarrhea, unspecified; F17.200 Nicotine dependence, unspecified, uncomplicated; E66.9 Obesity, unspecified; Z68.30 Body mass index [BMI] 30.0-30.9, adult

== ENCOUNTER → 2019-11-28 | Outpatient (REF) | payer MEDICARE ==
[~2019-11-28] MED LIST changes: +ACET1TAB55 PO; +ASPI81CH8 PO; +ATOR1TAB21 PO
[2019-11-28 18:38] LABS: ALBUMIN 3.3 GM/DL (3.2-5.2); CALCIUM LEVEL 9.1 MG/DL (8.8-10.2); CREATININE FOR GFR 1.95 MG/DL (0.70-1.30); GLOMERULAR FILTRATION RATE 36.2 (>42); PHOSPHORUS LEVEL 3.7 MG/DL (2.5-4.9); POTASSIUM SERUM 5.2 MEQ/L (3.5-5.1)
== END ==
LOC: M SFHCADAM 15:26
PROVIDERS: ATTEND Physician Assistant Medical
DX: N18.3 Chronic kidney disease, stage 3 (moderate) (principal)

== ENCOUNTER → 2020-01-01 | Outpatient (CLI) | payer MEDICARE ==
--- NOTE | 2020-01-01 08:49 | REP ---
URINARY TRACT SONOGRAPHY: HISTORY: Chronic kidney disease. Comparison CT study November 23, 2019. FINDINGS: Scan quality is inhibited some degree by abdominal gas and patient body habitus. Renal cortical echogenicity pattern is normal and contours are smooth bilaterally. The right kidney measures 11.4 x 5.7 x 4.5 cm. Left renal dimensions are 12.0 x 5.0 x 5.0 cm. No hydronephrosis, cyst, or mass is seen. Scanning at the level of the bladder shows no abnormality. IMPRESSION: No morphologic abnormality seen. Electronically Signed by Job Tineo MD 01/01/2020 09:30 A
--- NOTE | 2020-01-01 08:53 | REP ---
Abdominal aortic sonography: History: Abdominal aortic aneurysm. Comparison CT study November 23, 2019. Findings: As seen on recent CT study, there is diffuse aneurysmal dilation of the abdominal aorta. At the diaphragmatic hiatus, aortic dimensions are 6.5 cm AP by 6.7 cm transverse. The aorta is obscured at the level of the main renal artery origins. The mid aortic dimensions are 5.2 x 5.7 cm. Distal aorta measures 4.6 x 3.9 cm. The right and left common iliac arteries are ectatic but not frankly aneurysmal measuring 1.6 and 1.9 cm in greatest AP dimension respectively. Impression: Diffuse aneurysmal dilation of the entire abdominal aorta. This is a change from comparison CT study of the chest dated January 18, 2010. It is unchanged from November 23, [address] angiography of the chest abdomen pelvis with IV contrast if feasible. Electronically Signed by Job Tineo MD 01/01/2020 08:45 A
--- NOTE | 2020-01-02 | ECHO ---
DATE OF PROCEDURE: 01/01/2020 DATE OF : 11/10/1946 AGE: 74 REFERRING PROVIDER: ANTONETTE Her REASON FOR THE STUDY: Descending aortic aneurysm. 2D MEASUREMENTS: IVS: 1.3 cm LV: 3.8 cm LVPW: 1.2 cm LA: 3.5 cm Aorta: 3.5 cm IVC: 1.1 cm DOPPLER MEASUREMENTS: Peak velocity across the aortic valve: 1.2 meters per second Peak velocity across the LVOT: 1.1 meters per second Mitral E: 0.55, Mitral A: 0.78 with a ratio of 0.7. Maximum tricuspid valve velocity: 2.2 meters per second 2D COMMENTS: 1. Normal left ventricular size with mildly increased left ventricular wall thickness and normal global left ventricular systolic function. The estimated left ventricular systolic ejection fraction is 60-65%. 2 Normal aortic root. The descending aorta appeared to be enlarged and measured 5.7 cm. 3. Normal left atrium. Normal right atrium and right ventricle. 4. The atrial septum appeared to be normal without evidence of defect or shunt. 5. No pericardial effusion seen. 6. Mildly calcified aortic valve with normal leaflet excursion. Mildly calcified mitral annulus with normal anterior mitral valve leaflet motion. Normal tricuspid valve. The pulmonic valve and proximal pulmonary artery branches were not well visualized. 7. The inferior vena cava was normal in size, central venous pressure is most likely normal. DOPPLER: It detects trace mitral regurgitation, mild aortic regurgitation, and mild tricuspid regurgitation. The calculated pulmonary artery systolic pressure was normal. IMPRESSION: 1. Normal global left ventricular systolic function with mild concentric left ventricular hypertrophy. There are features of left ventricular diastolic dysfunction manifested by abnormal relaxation. 2. Aortic valve sclerosis with mild aortic regurgitation but no aortic stenosis. 3. A dilated descending aorta was noted in limited views. I recommend a chest CT for further evaluation. 4. Mitral annulus calcification with trace mitral regurgitation. 5. Trace tricuspid regurgitation with a normal calculated pulmonary artery systolic pressure. MTDD
== END ==
LOC: M RAD 07:25
PROVIDERS: ATTEND Physician Assistant Medical
DX: I71.4 Abdominal aortic aneurysm, without rupture (principal); R60.1 Generalized edema
CPT/HCPCS: 76706; 76775; 93306; G0463

== ENCOUNTER → 2020-01-02 | Outpatient (CLI) | payer MEDICARE ==
--- NOTE | 2020-01-03 08:02 | REP ---
MRI LUMBAR SPINE WITHOUT CONTRAST: HISTORY: Lumbar degenerative disc disease. Bilateral leg paresthesias. Question urinary incontinence. No comparison MRI study. Comparison lumbar spine radiographs, November 19, 2019. Preliminary report provided at the time of exam by Dr. Pabon. TECHNIQUE: Sagittal and axial T1- and T2-weighted scans are acquired in the usual fashion with and without fat saturation. Sequences include spin echo, turbo spin-echo, and STIR imaging sequences. MRI FINDINGS: There is straightening of the normal lumbar lordosis. Lumbar vertebral body heights are preserved. No bony destructive lesion is seen. The tip of the conus medullaris is normal in position and appearance at L1. There is a 6.3 cm abdominal aortic aneurysm noted incidentally. This is identified on recent CT study and is unchanged. Axial and sagittal images show no disc abnormality at L2-3 or L1-2. At L3-4, there is diffuse disc bulging. The disc is narrowed in height. There is mild central canal stenosis at the L3-4 level due to diffuse disc bulging and developmentally short pedicles along with mild ligamentum flavum and facet hypertrophy. The midline AP dimension of the thecal sac at L3-4 is 11 mm. There is some foraminal disc bulging. Minimal right-sided neural foraminal narrowing is seen due to associated spurring. At L4-L5, there is moderate central canal stenosis due to diffuse disc bulging, developmentally short pedicles, and facet and ligamentum flavum hypertrophy. The midline AP dimension of the thecal sac at L4-5 is 6 mm. There is mild bilateral neural foraminal narrowing due to facet hypertrophy and disc bulging. At L5-S1, there is a small central focal disc protrusion indenting the ventral margin of the thecal sac. No central canal stenosis is seen. No foraminal stenosis is noted. There is no evidence of spondylolysis or spondylolisthesis. IMPRESSION: 1. Large abdominal aortic aneurysm again noted. 2. Moderate central canal stenosis noted at L4-5 with bilateral L4-5 foraminal narrowing. 3. Minimal right-sided foraminal narrowing at L3-4. Mild central canal stenosis at L3-4. Electronically Signed by Job Tineo MD 01/03/2020 08:20 A
== END ==
LOC: M RAD 08:54
PROVIDERS: ATTEND Physician Assistant Medical
DX: M51.26 Other intervertebral disc displacement, lumbar region (principal); R20.0 Anesthesia of skin; N39.45 Continuous leakage; M48.061 Spinal stenosis, lumbar region without neurogenic claudication; I71.4 Abdominal aortic aneurysm, without rupture

== ENCOUNTER → 2020-01-06 | Outpatient (REF) | payer MEDICARE ==
[2020-01-06 17:31] LABS: ALBUMIN 3.8 GM/DL (3.2-5.2); CALCIUM LEVEL 9.5 MG/DL (8.8-10.2); CREATININE FOR GFR 1.38 MG/DL (0.70-1.30); GLOMERULAR FILTRATION RATE 53.9 (>42); PHOSPHORUS LEVEL 3.6 MG/DL (2.5-4.9); POTASSIUM SERUM 5.1 MEQ/L (3.5-5.1)
== END ==
LOC: M SFHCADAM 13:29
PROVIDERS: ATTEND Physician Assistant Medical
DX: N18.3 Chronic kidney disease, stage 3 (moderate) (principal)

== ENCOUNTER → 2020-11-02 | Outpatient (REF) | payer MEDICARE, BC ==
[2020-11-02 13:32] LABS: BLOOD UREA NITROGEN 28 MG/DL (7-18); CREATININE FOR GFR 1.13 MG/DL (0.70-1.30); GLOMERULAR FILTRATION RATE > 60.0 (>42)
== END ==
LOC: M LABDRWAD 12:16
PROVIDERS: ATTEND Surgery Vascular Surgery
DX: I71.6 Thoracoabdominal aortic aneurysm, without rupture (principal)

== ENCOUNTER → 2020-11-05 | Outpatient (CLI) | payer MEDICARE, BC ==
[~2020-11-05] MED LIST changes: +ISOVUE-370 76% 100ML VIAL As Ordered ONE
--- NOTE | 2020-11-05 16:56 | REP ---
INDICATION: THORACOABDOMINAL AORTIC ANEURYSM, WITHOUT RUPTURE. COMPARISON: Comparison chest CT study 22 January 2010. More recent comparison study is reviewed from [facility] January 08, 2020.. TECHNIQUE: Contrast dose: 100 ML of Isovue [address] technique: Helical scanning is acquired and overlapping 1.5 mm and contiguous 3 mm axial images are reformatted. In addition, maximum intensity projection and multiplanar re-formation images are generated in sagittal and coronal imaging projections. FINDINGS: There is good opacification of the aorta and great vessels. The patient is status post stent graft placement in the aortic arch and descending thoracic aorta for aortic aneurysm. The descending thoracic aorta is aneurysmally dilated. There is no evidence of endoleak. The descending aorta measures 5.6 cm in greatest oblique anteroposterior dimension at the inferior aspect of the left atrium. Previously, this measurement was 5.7 cm. No further enlargement. No evidence of dissection. The ascending aorta measures 4.3 cm at the level of the right main pulmonary artery. The pulmonary arterial tree opacifies homogeneously as well. There is no evidence to suggest pulmonary embolus. No filling defect or vessel cutoff is seen. There are 2 noncalcified 4 mm nodules in the right lower lobe displayed on page 84 and 85 of 129 in series 405 of today's study. These are unchanged from January 08, 2020 and January 22, [address] studies. There is mild linear fibrosis in the left base. Lung mata are otherwise clear. Normal adrenal glands are observed. The visualized upper abdominal structures are unremarkable. There are surgical clips in the gallbladder fossa. IMPRESSION: Status post stent graft placement for descending thoracic aortic aneurysm. No evidence of endovascular leak or progressive dilation. Stable right lower lobe pulmonary nodules.. <Electronically signed by Shalom Tineo > 11/05/20 [id number]
--- NOTE | 2020-11-05 17:02 | REP ---
INDICATION: THORACOABDOMINAL AORTIC ANEURYSM, WITHOUT RUPTURE. COMPARISON: Comparison CT angiography January 08, 2020.. TECHNIQUE: Helical scanning is acquired following the intravenous injection of 100 mL of Isovue 370. 3 mm axial images re-formatted. Coronal and sagittal MPR images are generated. 3D surface rendered images are generated and viewed rotationally. FINDINGS: A descending aortic stent graft is noted in place extending through the abdominal aorta to bilateral common iliac arteries. There are vascular stents in place in the renal arteries bilaterally and in the superior mesenteric artery. These do not appear stenotic. 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 there is no definite endoleak. The abdominal aortic aneurysm measures 5.2 cm in anteroposterior dimension at the lower pole of the kidneys, previously 4.9 cm. No periaortic hematoma or fibrosis is seen. The kidneys show cortical atrophy, right more so than left. No hydronephrosis or mass is seen. There is sigmoid colon diverticulosis. No bony destructive lesion is seen. No focal hepatic or splenic lesion is seen. IMPRESSION: Status post aorto bi-iliac stent graft and therapy for thoracoabdominal aneurysm. SMA and bilateral renal artery stents are noted in place which demonstrate patency. 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 <Electronically signed by Shalom Tineo > 11/05/20 [id number]
== END ==
LOC: M RAD 15:09
PROVIDERS: ATTEND Physician Assistant
DX: Z48.812 Encounter for surgical aftercare following surgery on the circulatory system (principal); I71.6 Thoracoabdominal aortic aneurysm, without rupture; R91.1 Solitary pulmonary nodule
CPT/HCPCS: 71275; 74174; Q9967

== ENCOUNTER → 2021-03-14 | Outpatient (REF) | payer MEDICARE ==
[~2021-03-14] MED LIST changes: -ISOVUE-370 76% 100ML VIAL As Ordered ONE
[2021-03-14 19:13] LABS: BASO # 0.1 10^3/uL (0.0-0.2); BASO % 0.6 % (0.0-1.0); EOS # 0.4 10^3/uL (0.0-0.5); EOS % 4.6 % (0.0-3.0); HEMOGLOBIN 15.5 g/dl (13.5-17.5); LYMPH # 2.9 10^3/uL (1.5-5.0); LYMPH % 33.5 % (24.0-44.0); MEAN CORPUSCULAR HEMOGLOBIN 32.3 pg (27.0-33.0); MEAN CORPUSCULAR VOLUME 97.9 fl (80.0-96.0); MONO # 0.7 10^3/uL (0.0-0.8); NEUTROPHILS # 4.6 10^3/uL (1.5-8.5); NEUTROPHILS % 52.5 % (36.0-66.0); PLATELET COUNT, AUTOMATED 104 10^3/uL (150-450); WHITE BLOOD COUNT 8.8 10^3/uL (4.0-10.0)
[2021-03-14 19:52] LABS: ALBUMIN 3.1 GM/DL (3.2-5.2); ALT/SGPT 29 U/L (12-78); BILIRUBIN,TOTAL 0.7 MG/DL (0.2-1.0); BLOOD UREA NITROGEN 24 MG/DL (7-18); CALCIUM LEVEL 9.1 MG/DL (8.8-10.2); CARBON DIOXIDE LEVEL 28 MEQ/L (21-32); CHLORIDE LEVEL 104 MEQ/L (98-107); CHOLESTEROL LEVEL 116 MG/DL (<200); CHOLESTEROL RISK RATIO 2.109 (<5); CREATININE FOR GFR 1.09 MG/DL (0.70-1.30); GLOMERULAR FILTRATION RATE > 60.0 (>42); GLUCOSE, FASTING 72 MG/DL (70-100); HDL CHOLESTEROL 55 MG/DL (>40); LDL CHOLESTEROL 34 MG/DL (<100); NON-HDL-C 61 MG/DL; POTASSIUM SERUM 4.6 MEQ/L (3.5-5.1); SODIUM LEVEL 137 MEQ/L (136-145); THYROID STIMULATING HORMONE 0.831 uIU/ML (0.358-3.740); TRIGLYCERIDES LEVEL 136 MG/DL (<150)
== END ==
LOC: M SFHCADAM 15:47
PROVIDERS: ATTEND Physician Assistant Medical
DX: E78.2 Mixed hyperlipidemia (principal); I71.4 Abdominal aortic aneurysm, without rupture; E66.01 Morbid (severe) obesity due to excess calories; F17.210 Nicotine dependence, cigarettes, uncomplicated; M51.36 Other intervertebral disc degeneration, lumbar region; N18.31 Chronic kidney disease, stage 3a

== ENCOUNTER → 2022-03-14 | Outpatient (CLI) | payer MEDICARE ==
[2022-03-14 13:21] LABS: BASO # 0.1 10^3/uL (0.0-0.2); BASO % 0.6 % (0.0-1.0); EOS # 0.6 10^3/uL (0.0-0.5); EOS % 7.1 % (0.0-3.0); HEMATOCRIT 47.3 % (42.0-52.0); HEMOGLOBIN 15.4 g/dl (13.5-17.5); LYMPH # 2.5 10^3/uL (1.5-5.0); LYMPH % 32.6 % (24.0-44.0); MEAN CORPUSCULAR HEMOGLOBIN 31.7 pg (27.0-33.0); MEAN CORPUSCULAR HGB CONC 32.6 g/dl (32.0-36.5); MEAN CORPUSCULAR VOLUME 97.3 fl (80.0-96.0); MONO # 0.5 10^3/uL (0.0-0.8); MONO % 6.3 % (2.0-8.0); NEUTROPHILS # 4.1 10^3/uL (1.5-8.5); PLATELET COUNT, AUTOMATED 117 10^3/uL (150-450); RED BLOOD COUNT 4.86 10^6/uL (4.30-6.10); WHITE BLOOD COUNT 7.8 10^3/uL (4.0-10.0)
[2022-03-14 15:01] LABS: MALB URINE SIEMENS 59.1 MG/L; MAU/CREAT RATIO 43.4 MCG/MG (0.0-30.0)
[2022-03-14 15:45] LABS: ALBUMIN 3.4 GM/DL (3.2-5.2); BILIRUBIN,TOTAL 0.6 MG/DL (0.2-1.0); CALCIUM LEVEL 9.1 MG/DL (8.8-10.2); CHOLESTEROL RISK RATIO 2.333 (<5); CREATININE FOR GFR 1.33 MG/DL (0.70-1.30); POTASSIUM SERUM 4.3 MEQ/L (3.5-5.1); THYROID STIMULATING HORMONE 1.54 uIU/ML (0.358-3.740); TOTAL PROTEIN 7.7 GM/DL (6.4-8.2)
== END ==
LOC: M ADAMS 07:53
PROVIDERS: ATTEND Physician Assistant Medical
DX: N18.31 Chronic kidney disease, stage 3a (principal); E78.2 Mixed hyperlipidemia; E66.01 Morbid (severe) obesity due to excess calories; F17.210 Nicotine dependence, cigarettes, uncomplicated

== ENCOUNTER → 2022-06-19 | Outpatient (REF) | payer MEDICARE ==
[2022-06-19 18:38] LABS: BLOOD UREA NITROGEN 30 MG/DL (9-23); CREATININE FOR GFR 1.05 MG/DL (0.70-1.30); GLOMERULAR FILTRATION RATE > 60.0 (>42)
== END ==
LOC: M LABDRWAD 16:17
PROVIDERS: ATTEND Surgery Vascular Surgery
DX: I71.60 Thoracoabdominal aortic aneurysm, without rupture, unspecified (principal)

== ENCOUNTER → 2022-06-27 | Outpatient (CLI) | payer MEDICARE, BC ==
[~2022-06-27] MED LIST changes: +ISOVUE-370 76% 100ML VIAL As Ordered ONE
== END ==
LOC: M RAD 15:01
PROVIDERS: ATTEND Surgery Vascular Surgery
DX: I71.60 Thoracoabdominal aortic aneurysm, without rupture, unspecified (principal); Z95.818 Presence of other cardiac implants and grafts
CPT/HCPCS: 71275; 74174; Q9967

== ENCOUNTER → 2022-09-19 | Outpatient (REF) | payer BC, MEDICARE ==
[~2022-09-19] MED LIST changes: -ISOVUE-370 76% 100ML VIAL As Ordered ONE
[2022-09-19 13:56] LABS: ALBUMIN 3.7 G/DL (3.2-5.2); ALKALINE PHOSPHATASE 121 U/L (46-116); ALT/SGPT 19 U/L (7.0-40); AST/SGOT 17 U/L (<34); BILIRUBIN,TOTAL 0.6 MG/DL (0.3-1.2); BLOOD UREA NITROGEN 32 MG/DL (9-23); CALCIUM LEVEL 9.6 MG/DL (8.3-10.6); CARBON DIOXIDE LEVEL 28 MMOL/L (20-31); CHLORIDE LEVEL 106 MMOL/L (98-107); CHOLESTEROL LEVEL 103 MG/DL (<200); CHOLESTEROL RISK RATIO 2.44 (<5); CREATININE FOR GFR 1.09 MG/DL (0.70-1.30); GLOMERULAR FILTRATION RATE > 60.0 (>42); GLUCOSE, FASTING 88 MG/DL (74-106); HDL CHOLESTEROL 42.1 MG/DL (>40); LDL CHOLESTEROL 44.5 MG/DL (<100); NON-HDL-C 61 MG/DL; POTASSIUM SERUM 4.6 MMOL/L (3.5-5.1); SODIUM LEVEL 142 MMOL/L (136-145); TOTAL PROTEIN 7.7 G/DL (5.7-8.2); TRIGLYCERIDES LEVEL 82 MG/DL (<150)
[2022-09-19 13:57] LABS: BASO # 0.1 10^3/uL (0.0-0.2); BASO % 0.6 % (0.0-1.0); EOS # 0.6 10^3/uL (0.0-0.5); HEMATOCRIT 49.5 % (42.0-52.0); LYMPH # 2.7 10^3/uL (1.5-5.0); LYMPH % 29.2 % (24.0-44.0); MEAN CORPUSCULAR HEMOGLOBIN 31.8 pg (27.0-33.0); MEAN CORPUSCULAR HGB CONC 32.3 g/dl (32.0-36.5); MEAN CORPUSCULAR VOLUME 98.4 fl (80.0-96.0); MONO # 0.7 10^3/uL (0.0-0.8); MONO % 7.1 % (2.0-8.0); NEUTROPHILS # 5.3 10^3/uL (1.5-8.5); NEUTROPHILS % 56.7 % (36.0-66.0); PLATELET COUNT, AUTOMATED 108 10^3/uL (150-450); RED BLOOD COUNT 5.03 10^6/uL (4.30-6.10); THYROID STIMULATING HORMONE 1.282 uIU/ML (0.55-4.78); WHITE BLOOD COUNT 9.3 10^3/uL (4.0-10.0)
[2022-09-19 14:50] LABS: CREATININE, URINE 120.7 MG/DL
[2022-09-19 14:52] LABS: MAU/CREAT RATIO 135.8 MCG/MG (0.0-30.0)
== END ==
LOC: M SFHCADAM 08:28
PROVIDERS: ATTEND Physician Assistant Medical
DX: E78.2 Mixed hyperlipidemia (principal); E66.01 Morbid (severe) obesity due to excess calories; I71.40 Abdominal aortic aneurysm, without rupture, unspecified

== ENCOUNTER → 2023-03-23 | Outpatient (CLI) | payer MEDICARE, BC | LOC: M PLAIMG 11:15 | PROVIDERS: ATTEND Physician Assistant Medical | DX: R91.8 Other nonspecific abnormal finding of lung field (principal) ==

== ENCOUNTER → 2023-03-27 | Outpatient (REF) | payer BC, MEDICARE ==
[2023-03-27 13:17] LABS: HEMOGLOBIN 15.9 g/dl (13.5-17.5); MEAN CORPUSCULAR HGB CONC 32.4 g/dl (32.0-36.5); MEAN CORPUSCULAR VOLUME 98.6 fl (80.0-96.0); PLATELET COUNT, AUTOMATED 124 10^3/uL (150-450); RED BLOOD COUNT 4.97 10^6/uL (4.30-6.10); WHITE BLOOD COUNT 8.2 10^3/uL (4.0-10.0)
[2023-03-27 13:18] LABS: ALBUMIN 3.7 G/DL (3.2-5.2); ALKALINE PHOSPHATASE 119 U/L (46-116); ALT/SGPT 15 U/L (7.0-40); AST/SGOT 11 U/L (<34); BILIRUBIN,TOTAL 0.7 MG/DL (0.3-1.2); BLOOD UREA NITROGEN 27 MG/DL (9-23); CALCIUM LEVEL 9.8 MG/DL (8.3-10.6); CARBON DIOXIDE LEVEL 29 MMOL/L (20-31); CHLORIDE LEVEL 105 MMOL/L (98-107); CHOLESTEROL LEVEL 107 MG/DL (<200); CHOLESTEROL RISK RATIO 2.54 (<5); CREATININE FOR GFR 1.14 MG/DL (0.70-1.30); GLOMERULAR FILTRATION RATE > 60.0 (>42); GLUCOSE, FASTING 103 MG/DL (74-106); LDL CHOLESTEROL 46.6 MG/DL (<100); POTASSIUM SERUM 4.5 MMOL/L (3.5-5.1); SODIUM LEVEL 141 MMOL/L (136-145); TOTAL PROTEIN 7.6 G/DL (5.7-8.2); TRIGLYCERIDES LEVEL 92 MG/DL (<150)
[2023-03-27 13:20] LABS: THYROID STIMULATING HORMONE 1.427 uIU/ML (0.55-4.78)
[2023-03-27 13:57] LABS: ATYPICAL LYMPH 20 % (0-5); EOSINOPHILS 4 % (0-3); LYMPHOCYTES 12 % (16-44); MONOCYTES 4 % (0-5); NEUTROPHILS 60 % (28-66); PLATELET ESTIMATE DECREASED (NORMAL)
== END ==
LOC: M SFHCADAM 08:48
PROVIDERS: ATTEND Physician Assistant Medical
DX: E78.2 Mixed hyperlipidemia (principal); E66.01 Morbid (severe) obesity due to excess calories; N18.31 Chronic kidney disease, stage 3a

== ENCOUNTER 2023-09-26 15:40 | Emergency (ER) | payer MEDICARE, BC ==
[~2023-09-26] VITALS: Ht 188 cm; Wt 90.9 kg
[2023-09-26] MEDS ORDERED: DOXY100T27 (15:47)
[2023-09-26] MEDS ORDERED: ALBU8.5H (15:47)
[2023-09-26] MEDS ORDERED: MUCI1TAB16 PO (15:49)
[2023-09-26] MEDS: methylPREDNISolone 125MG 2ML VIAL IV ONE (17:23)
[2023-09-26] MEDS: IPRATROPIUM 0.5MG/ALBUTEROL 2.5MG INH SOL UD 3ML (DUONEB) NEB SCH (17:26)
[2023-09-26 17:29] LABS: BASO # 0.1 10^3/uL (0.0-0.2); BASO % 0.5 % (0.0-1.0); EOS # 0.4 10^3/uL (0.0-0.5); EOS % 3.4 % (0.0-3.0); HEMATOCRIT 46.7 % (42.0-52.0); HEMOGLOBIN 15.8 g/dl (13.5-17.5); LYMPH # 2.4 10^3/uL (1.5-5.0); LYMPH % 22.5 % (24.0-44.0); MEAN CORPUSCULAR HGB CONC 33.8 g/dl (32.0-36.5); MEAN CORPUSCULAR VOLUME 94.7 fl (80.0-96.0); MONO # 0.8 10^3/uL (0.0-0.8); MONO % 7.4 % (2.0-8.0); NEUTROPHILS # 6.9 10^3/uL (1.5-8.5); NEUTROPHILS % 64.8 % (36.0-66.0); PLATELET COUNT, AUTOMATED 102 10^3/uL (150-450); RED BLOOD COUNT 4.93 10^6/uL (4.30-6.10); WHITE BLOOD COUNT 10.7 10^3/uL (4.0-10.0)
[2023-09-26 17:47] VITALS: O2SAT 93
[2023-09-26 17:49] LABS: BLOOD UREA NITROGEN 39 MG/DL (9-23); CALCIUM LEVEL 8.4 MG/DL (8.3-10.6); CARBON DIOXIDE LEVEL 32 MMOL/L (20-31); CHLORIDE LEVEL 107 MMOL/L (98-107); CREATININE FOR GFR 1.14 MG/DL (0.70-1.30); GLOMERULAR FILTRATION RATE > 60.0 (>42); GLUCOSE, FASTING 111 MG/DL (74-106); POTASSIUM SERUM 4.5 MMOL/L (3.5-5.1); SODIUM LEVEL 140 MMOL/L (136-145)
[2023-09-26] MEDS ORDERED: VENTAER INH (18:56)
[2023-09-26] MEDS ORDERED: PRED20TA PO (18:56)
[2023-09-26 19:00] VITALS: BP 155/70
[2023-09-26 19:10] VITALS: TEMP 97.5; O2SAT 94
== END 2023-09-26 19:33 | disposition home or self-care (01) ==
LOC: M ED 15:40
DX: J20.9 Acute bronchitis, unspecified (principal); B97.89 Other viral agents as the cause of diseases classified elsewhere; J01.90 Acute sinusitis, unspecified; E78.5 Hyperlipidemia, unspecified; K21.9 Gastro-esophageal reflux disease without esophagitis; I71.40 Abdominal aortic aneurysm, without rupture, unspecified; F17.200 Nicotine dependence, unspecified, uncomplicated
CPT/HCPCS: 71045; 80048; 83880; 85025; 87486; 87581; 87633; 87798; 93005; 94640; 96374; 99284; J2930

== ENCOUNTER 2023-10-29 00:41 | Emergency (ER) | payer MEDICARE, BC ==
[~2023-10-29] VITALS: Ht 188 cm; Wt 92.9 kg
[~2023-10-29 00:41] MED LIST changes: +ALBU8.5H; +DOXY100T27; +MUCI1TAB16 PO; +PRED20TA PO; +VENTAER INH
[2023-10-29 02:11] LABS: BASO % 0.5 % (0.0-1.0); EOS # 0.2 10^3/uL (0.0-0.5); EOS % 1.8 % (0.0-3.0); HEMATOCRIT 45.8 % (42.0-52.0); HEMOGLOBIN 15.4 g/dl (13.5-17.5); LYMPH # 1.8 10^3/uL (1.5-5.0); LYMPH % 19.8 % (24.0-44.0); MEAN CORPUSCULAR HEMOGLOBIN 32.4 pg (27.0-33.0); MEAN CORPUSCULAR HGB CONC 33.6 g/dl (32.0-36.5); MEAN CORPUSCULAR VOLUME 96.4 fl (80.0-96.0); MONO # 0.9 10^3/uL (0.0-0.8); MONO % 10.3 % (2.0-8.0); NEUTROPHILS % 67.1 % (36.0-66.0); PLATELET COUNT, AUTOMATED 143 10^3/uL (150-450); RED BLOOD COUNT 4.75 10^6/uL (4.30-6.10); WHITE BLOOD COUNT 8.9 10^3/uL (4.0-10.0)
[2023-10-29 02:33] LABS: LIPASE 33 U/L (12-53)
[2023-10-29 02:35] LABS: ALBUMIN 3.3 G/DL (3.2-5.2); ALKALINE PHOSPHATASE 125 U/L (46-116); ALT/SGPT 18 U/L (7.0-40); AST/SGOT 19 U/L (<34); BILIRUBIN,DIRECT 0.4 MG/DL (<0.4); BLOOD UREA NITROGEN 25 MG/DL (9-23); CALCIUM LEVEL 9.3 MG/DL (8.3-10.6); CARBON DIOXIDE LEVEL 24 MMOL/L (20-31); CHLORIDE LEVEL 103 MMOL/L (98-107); CREATININE FOR GFR 1.06 MG/DL (0.70-1.30); GLOMERULAR FILTRATION RATE > 60.0 (>42); GLUCOSE, FASTING 110 MG/DL (74-106); SODIUM LEVEL 136 MMOL/L (136-145); TOTAL PROTEIN 7.3 G/DL (5.7-8.2)
[2023-10-29] MEDS ORDERED: ISOVUE-370 76% 100ML VIAL As Ordered ONE (07:41)
[2023-10-29] MEDS: ONDANSETRON 4MG 2ML VIAL IV ONE (08:02)
[2023-10-29] MEDS: MORPHINE 2 MG/ML 1ML VIAL IV PRN (08:05)
[2023-10-29] MEDS: NS 500 ML IV ONE (08:06)
[2023-10-29 08:08] LABS: INR 1.09; PARTIAL THROMBOPLASTIN TIME 40.3 SECONDS (24.8-34.2); PROTHROMBIN TIME 13.8 SECONDS (12.5-14.5)
[2023-10-29 08:16] LABS: CK-MB VALUE MASS 1.4 NG/ML (<3.6)
[2023-10-29 08:17] LABS: MB/CK RELATIVE INDEX 1.59 (< OR =4)
[2023-10-29 08:48] LABS: RSV AMPLIFICATION NEGATIVE (NEGATIVE)
[2023-10-29 09:29] VITALS: BP 186/84
[2023-10-29] MEDS: LABETALOL 100MG/20ML VIAL IV STA (09:29)
[2023-10-29] MEDS ORDERED: ATOR40TA75 PO (09:40)
[2023-10-29] MEDS ORDERED: HOME MED LIST COMPLETE! XX SCH (09:40)
[2023-10-29] MEDS ORDERED: ASPI81TA26 PO (09:40)
[2023-10-29] MEDS ORDERED: VENTAER INH (09:40)
[2023-10-29] MEDS: niCARdipine IV 40 MG in IV 1 EA IV SCH (09:49)
[2023-10-29] MEDS: MORPHINE 2 MG/ML 1ML VIAL IV ONE (10:09)
[2023-10-29] MEDS ORDERED: LABETALOL 100MG/20ML VIAL As Ordered ONE (10:14)
[2023-10-29 10:36] VITALS: BP 130/65; TEMP 98.2; O2SAT 95
== END 2023-10-29 10:40 | disposition short-term general hospital (02) ==
LOC: M ED 00:41
DX: I71.30 Abdominal aortic aneurysm, ruptured, unspecified (principal); F17.200 Nicotine dependence, unspecified, uncomplicated
CPT/HCPCS: 71045; 71275; 74018; 74177; 80048; 80076; 81001; 82550; 82553; 83605; 83690; 84484; 85025; 85610; 85730; 86850; 86900; 86901; 86920; 87040; 87631; 93005; 93041; 96361; 96365; 96375; 96376; 99285; J1920; J2405; P9016; Q9967

== ENCOUNTER → 2023-11-27 | Outpatient (REF) | payer MEDICARE, BC ==
[~2023-11-27] MED LIST changes: +ASPI81TA26 PO; +ATOR40TA75 PO
[2023-11-27 14:26] LABS: BLOOD UREA NITROGEN 22 MG/DL (9-23); CREATININE FOR GFR 1.19 MG/DL (0.70-1.30); GLOMERULAR FILTRATION RATE > 60.0 (>42)
== END ==
LOC: M LABDRWAD 12:42
PROVIDERS: ATTEND Physician Assistant
DX: I71.43 Infrarenal abdominal aortic aneurysm, without rupture (principal)

== ENCOUNTER → 2023-12-19 | Outpatient (CLI) | payer MEDICARE, BC ==
[~2023-12-19] MED LIST changes: +ISOVUE-370 76% 100ML VIAL As Ordered ONE
== END ==
LOC: M RAD 07:28
PROVIDERS: ATTEND Physician Assistant
DX: I71.40 Abdominal aortic aneurysm, without rupture, unspecified (principal)
CPT/HCPCS: 71275; 74174; Q9967

== ENCOUNTER → 2024-01-14 | Outpatient (REF) | payer MEDICARE, BC ==
[~2024-01-14] MED LIST changes: -ISOVUE-370 76% 100ML VIAL As Ordered ONE
[2024-01-14 15:18] LABS: APPEARANCE, URINE HAZY (CLEAR); BACTERIA, URINE AUTO 1+ (NEGATIVE); BILIRUBIN, URINE AUTO NEGATIVE (NEGATIVE); BLOOD, URINE BLOOD 2+ (NEGATIVE); COLOR, URINE YELLOW (YELLOW); GLUCOSE, URINE (UA) AUTO NEGATIVE (NEGATIVE); KETONE, URINE AUTO NEGATIVE (NEGATIVE); LEUKOCYTE ESTERASE, URINE AUTO 3+ (NEGATIVE); MUCUS, URINE SMALL (NEGATIVE); NITRITE, URINE AUTO POSITIVE (NEGATIVE); PROTEIN, URINE AUTO 2+ mg/dL (NEGATIVE); RBC, URINE AUTO 9 /HPF (0-3); SQUAMOUS EPITHELIAL CELL UR AU 0 /HPF (0-6); UROBILINOGEN, URINE AUTO 0.2 mg/dL (0.0-2.0); WBC, URINE AUTO TNTC /HPF (0-3)
[2024-01-14 15:23] LABS: ALBUMIN 3.3 G/DL (3.2-5.2); CALCIUM LEVEL 9.3 MG/DL (8.3-10.6); CREATININE FOR GFR 1.57 MG/DL (0.70-1.30); PHOSPHORUS LEVEL 3.3 MG/DL (2.4-5.1); POTASSIUM SERUM 4.4 MMOL/L (3.5-5.1)
== END ==
LOC: M SFHCADAM 09:11
PROVIDERS: ATTEND Physician Assistant Medical
DX: N28.0 Ischemia and infarction of kidney (principal); N32.89 Other specified disorders of bladder; F17.210 Nicotine dependence, cigarettes, uncomplicated

== ENCOUNTER → 2024-02-07 | Outpatient (CLI) | payer MEDICARE, BC | LOC: M RAD 12:34 | PROVIDERS: ATTEND Physician Assistant Medical | DX: N28.0 Ischemia and infarction of kidney (principal); N32.89 Other specified disorders of bladder ==

== ENCOUNTER → 2024-03-18 | Outpatient (REF) | payer MEDICARE, BC ==
[2024-03-18 18:43] LABS: ALBUMIN 3.4 G/DL (3.2-5.2); BILIRUBIN,TOTAL 0.4 MG/DL (0.3-1.2); CHOLESTEROL RISK RATIO 2.85 (<5); CREATININE FOR GFR 1.66 MG/DL (0.70-1.30); GLOMERULAR FILTRATION RATE 43.1 (>42); HDL CHOLESTEROL 36.4 MG/DL (>40); LDL CHOLESTEROL 46.4 MG/DL (<100); NON-HDL-C 67.6 MG/DL; POTASSIUM SERUM 3.7 MMOL/L (3.5-5.1); TOTAL PROTEIN 7.2 G/DL (5.7-8.2)
[2024-03-18 18:46] LABS: THYROID STIMULATING HORMONE 2.25 uIU/ML (0.55-4.78)
[2024-03-18 19:14] LABS: HEMOGLOBIN A1c 5.3 % (4.0-6.0)
== END ==
LOC: M SFHCADAM 15:26
PROVIDERS: ATTEND Physician Assistant Medical
DX: E78.2 Mixed hyperlipidemia (principal); E66.01 Morbid (severe) obesity due to excess calories; N18.31 Chronic kidney disease, stage 3a

== ENCOUNTER → 2024-07-14 | Outpatient (REF) | payer MEDICARE, BC | LOC: M LABSMT 11:30 | PROVIDERS: ATTEND Physician Assistant | DX: Z12.5 Encounter for screening for malignant neoplasm of prostate (principal) | CPT/HCPCS: 36415; G0103 ==

== ENCOUNTER → 2024-12-02 | Outpatient (REF) | payer MEDICARE, BC ==
[2024-12-02 17:26] LABS: TOTAL PROTEIN,RANDOM URINE 128.9 MG/DL (0.0-14.0)
== END ==
LOC: M LAB REF 16:40
PROVIDERS: ATTEND Internal Medicine Nephrology
DX: R80.9 Proteinuria, unspecified (principal)

== ENCOUNTER → 2025-01-07 | Outpatient (CLI) | payer MEDICARE, BC | LOC: M PLAIMG 15:57 | PROVIDERS: ATTEND Family Medicine | DX: R05.1 Acute cough (principal) ==

== ENCOUNTER → 2025-02-03 | Outpatient (REF) | payer MEDICARE, BC ==
[2025-02-03 14:14] LABS: CREATININE FOR GFR 1.52 MG/DL (0.70-1.30); GLOMERULAR FILTRATION RATE 46.9 (>42)
== END ==
LOC: M LABDRWAD 12:52
PROVIDERS: ATTEND Physician Assistant
DX: I71.40 Abdominal aortic aneurysm, without rupture, unspecified (principal)

== ENCOUNTER → 2025-02-09 | Outpatient (REF) | payer MEDICARE, BC ==
[2025-02-09 17:11] LABS: BASO # 0.0 10^3/uL (0.0-0.2); BASO % 0.4 % (0.0-1.0); EOS # 0.2 10^3/uL (0.0-0.5); EOS % 2.8 % (0.0-3.0); LYMPH # 1.2 10^3/uL (1.5-5.0); LYMPH % 21.6 % (24.0-44.0); MONO # 0.4 10^3/uL (0.0-0.8); MONO % 7.2 % (2.0-8.0); NEUTROPHILS # 3.7 10^3/uL (1.5-8.5); NEUTROPHILS % 67.6 % (36.0-66.0)
[2025-02-09 17:12] LABS: INR 1.18
[2025-02-09 18:02] LABS: PLATELET COUNT, AUTOMATED 80 10^3/uL (150-450)
== END ==
LOC: M SFHCADAM 13:22
PROVIDERS: ATTEND Student in an Organized Health Care Education/Training Program
DX: T14.8XXA Other injury of unspecified body region, initial encounter (principal); X58.XXXA Exposure to other specified factors, initial encounter

== ENCOUNTER → 2025-02-10 | Outpatient (CLI) | payer MEDICARE, BC ==
[~2025-02-10] MED LIST changes: +ISOVUE-370 76% 100 ML VIAL ONE
== END ==
LOC: M PLAIMG 12:28
PROVIDERS: ATTEND Surgery Vascular Surgery
DX: I71.40 Abdominal aortic aneurysm, without rupture, unspecified (principal); J43.2 Centrilobular emphysema; J84.10 Pulmonary fibrosis, unspecified; R91.8 Other nonspecific abnormal finding of lung field; I74.11 Embolism and thrombosis of thoracic aorta
CPT/HCPCS: 71275; 74174; Q9967

== ENCOUNTER → 2025-02-13 | Outpatient (CLI) | payer MEDICARE, BC ==
[~2025-02-13] MED LIST changes: -ISOVUE-370 76% 100 ML VIAL ONE
== END ==
LOC: M LAB 16:07
PROVIDERS: ATTEND Family Medicine
DX: T14.8XXA Other injury of unspecified body region, initial encounter (principal); X58.XXXA Exposure to other specified factors, initial encounter; Y92.9 Unspecified place or not applicable; Y93.9 Activity, unspecified; Y99.9 Unspecified external cause status

== ENCOUNTER → 2025-02-19 | Outpatient (REF) | payer MEDICARE, BC ==
[2025-02-19 18:19] LABS: ALT/SGPT 18 U/L (7.0-40); AST/SGOT 22 U/L (<34); BASO # 0.0 10^3/uL (0.0-0.2); BASO % 0.4 % (0.0-1.0); EOS # 0.1 10^3/uL (0.0-0.5); EOS % 1.2 % (0.0-3.0); LYMPH # 1.0 10^3/uL (1.5-5.0); LYMPH % 15.6 % (24.0-44.0); MONO # 0.4 10^3/uL (0.0-0.8); MONO % 5.5 % (2.0-8.0); NEUTROPHILS # 5.1 10^3/uL (1.5-8.5); NEUTROPHILS % 76.9 % (36.0-66.0)
[2025-02-19 18:33] LABS: PLATELET COUNT, AUTOMATED 69 10^3/uL (150-450)
[2025-02-19 19:41] LABS: HEPATITIS C VIRUS ABY INDEX < 0.02 INDEX (<0.8)
== END ==
LOC: M SFHCADAM 11:15
PROVIDERS: ATTEND Physician Assistant Medical
DX: D69.6 Thrombocytopenia, unspecified (principal); D63.8 Anemia in other chronic diseases classified elsewhere; N18.31 Chronic kidney disease, stage 3a

== ENCOUNTER 2025-03-04 17:36 | Emergency (ER) | payer MEDICARE, BC ==
[2025-03-04] MEDS ORDERED: AMLO1TAB24 (17:48)
[2025-03-04] MEDS ORDERED: METO1TAB87 (17:48)
[2025-03-04 18:04] LABS: BASO # 0.0 10^3/uL (0.0-0.2); BASO % 0.4 % (0.0-1.0); EOS # 0.1 10^3/uL (0.0-0.5); EOS % 0.7 % (0.0-3.0); LYMPH # 0.7 10^3/uL (1.5-5.0); LYMPH % 9.6 % (24.0-44.0); MONO # 0.4 10^3/uL (0.0-0.8); MONO % 5.1 % (2.0-8.0); NEUTROPHILS # 6.3 10^3/uL (1.5-8.5); NEUTROPHILS % 83.5 % (36.0-66.0)
[2025-03-04 18:09] LABS: PLATELET COUNT, AUTOMATED 88 10^3/uL (150-450)
[2025-03-04] MEDS: HYDROMORPHONE HCL 0.5 MG/0.5 ML SYRINGE IV PRN ×2 (18:31→21:03)
[2025-03-04 18:34] LABS: ALT/SGPT 19.0 U/L (7.0-40); AST/SGOT 25.0 U/L (<34); CALCIUM LEVEL 9.6 MG/DL (8.3-10.6); CARBON DIOXIDE LEVEL 23.0 MMOL/L (20-31); CHLORIDE LEVEL 106.0 MMOL/L (98-107); CREATININE FOR GFR 1.41 MG/DL (0.70-1.30); GLOMERULAR FILTRATION RATE 51.3 (>42); POTASSIUM SERUM 4.4 MMOL/L (3.5-5.1); SODIUM LEVEL 139.0 MMOL/L (136-145)
[2025-03-04] MEDS ORDERED: ISOVUE-370 76% 100 ML VIAL As Ordered ONE (18:40)
[2025-03-04 21:45] VITALS: BP 167/76
[2025-03-04] MEDS: METOPROLOL TART 25 MG TABLET PO ONE (21:45)
[2025-03-04 22:16] VITALS: BP 176/75; TEMP 95.5; O2SAT 97
== END 2025-03-04 22:18 | disposition short-term general hospital (02) ==
LOC: M ED 17:36 → EDBD 17:36 → M ED 22:18
DX: I71.40 Abdominal aortic aneurysm, without rupture, unspecified (principal); I10 Essential (primary) hypertension; K21.9 Gastro-esophageal reflux disease without esophagitis; E78.5 Hyperlipidemia, unspecified; F17.200 Nicotine dependence, unspecified, uncomplicated; Z95.828 Presence of other vascular implants and grafts; Z79.82 Long term (current) use of aspirin; Z79.899 Other long term (current) drug therapy
CPT/HCPCS: 71275; 74174; 80047; 80048; 80076; 83690; 85025; 85049; 85055; 93005; 96374; 96376; 99285; J1171; Q9967

== ENCOUNTER 2025-03-27 14:04 | Outpatient (CLI) | payer MEDICARE, BC ==
[~2025-03-27] VITALS: Ht 188 cm; Wt 81.8 kg
[2025-03-27 13:15] VITALS: BP 127/68; O2SAT 97
[~2025-03-27 14:04] MED LIST changes: +ALBUTEROL SULFATE 2.5 MG/0.5 ML INH CONCENTRATE NEB SOLN INH PRN; +AMLO1TAB24; +EPINEPHrine INJ 1 MG/ML 1ML AMP IM PRN; +METO1TAB87; +diphenhydrAMINE 50 MG/ML VIAL IV PRN
[2025-03-27] MEDS: FERRIC CARBOXYMALTOSE 750 MG (VIAL MATE) IN 100ML NS IV ONE (14:27)
[2025-03-27] MEDS ORDERED: diphenhydrAMINE 50 MG/ML VIAL IV ONE (14:30)
[2025-03-27 15:15] VITALS: BP 132/60; O2SAT 98
== END 2025-03-27 15:15 | disposition home or self-care (01) ==
LOC: M INFU 14:04
PROVIDERS: ATTEND Student in an Organized Health Care Education/Training Program
DX: N18.31 Chronic kidney disease, stage 3a (principal); D63.8 Anemia in other chronic diseases classified elsewhere
CPT/HCPCS: 96365; J1439

== ENCOUNTER → 2025-04-01 | Outpatient (CLI) | payer MEDICARE, BC ==
[~2025-04-01] MED LIST changes: -ALBUTEROL SULFATE 2.5 MG/0.5 ML INH CONCENTRATE NEB SOLN INH PRN; -EPINEPHrine INJ 1 MG/ML 1ML AMP IM PRN; -diphenhydrAMINE 50 MG/ML VIAL IV PRN
== END ==
LOC: M RAD 07:54
PROVIDERS: ATTEND Physician Assistant Medical
DX: D69.6 Thrombocytopenia, unspecified (principal)

== ENCOUNTER 2025-04-03 13:49 | Outpatient (CLI) | payer MEDICARE, BC ==
[~2025-04-03] VITALS: Ht 188 cm; Wt 79.5 kg
[2025-04-03] MEDS: diphenhydrAMINE 25MG IV PRIOR TO INFUSION IV ONE (07:00)
[~2025-04-03 13:49] MED LIST changes: +ALBUTEROL SULFATE 2.5 MG/0.5 ML INH CONCENTRATE NEB SOLN INH PRN; +EPINEPHrine INJ 1 MG/ML 1ML AMP IM PRN; +FERRIC CARBOXYMALTOSE 750 MG (VIAL MATE) IN 100ML NS IV ONE; +diphenhydrAMINE 50 MG/ML VIAL IV ONE; +diphenhydrAMINE 50 MG/ML VIAL IV PRN
[2025-04-03 14:40] VITALS: BP 116/59; O2SAT 98
[2025-04-03] MEDS: FERRIC CARBOXYMALTOSE 750 MG (VIAL MATE) IN 100ML NS IV ONE (14:57)
[2025-04-03 15:20] VITALS: BP 138/68; O2SAT 99
== END 2025-04-03 15:20 | disposition home or self-care (01) ==
LOC: M INFU 13:49
PROVIDERS: ATTEND Student in an Organized Health Care Education/Training Program
DX: N18.31 Chronic kidney disease, stage 3a (principal); D63.8 Anemia in other chronic diseases classified elsewhere; Z88.1 Allergy status to other antibiotic agents
CPT/HCPCS: 96365; J1439

== ENCOUNTER → 2025-04-20 | Outpatient (REF) | payer MEDICARE, BC ==
[~2025-04-20] MED LIST changes: -ALBUTEROL SULFATE 2.5 MG/0.5 ML INH CONCENTRATE NEB SOLN INH PRN; -EPINEPHrine INJ 1 MG/ML 1ML AMP IM PRN; -FERRIC CARBOXYMALTOSE 750 MG (VIAL MATE) IN 100ML NS IV ONE; -diphenhydrAMINE 50 MG/ML VIAL IV ONE; -diphenhydrAMINE 50 MG/ML VIAL IV PRN
[2025-04-20 13:38] LABS: PLATELET COUNT, AUTOMATED 85 10^3/uL (150-450)
== END ==
LOC: M SFHCADAM 10:32
PROVIDERS: ATTEND Physician Assistant Medical
DX: Z01.89 Encounter for other specified special examinations (principal); D63.8 Anemia in other chronic diseases classified elsewhere

== ENCOUNTER 2025-04-23 19:14 | Emergency (ER) | payer MEDICARE, BC ==
[~2025-04-23] VITALS: Ht 188 cm; Wt 77.7 kg
[2025-04-23 19:45] LABS: BASO # 0.0 10^3/uL (0.0-0.2); BASO % 0.5 % (0.0-1.0); EOS # 0.1 10^3/uL (0.0-0.5); EOS % 1.2 % (0.0-3.0); LYMPH # 0.9 10^3/uL (1.5-5.0); LYMPH % 13.7 % (24.0-44.0); MONO # 0.4 10^3/uL (0.0-0.8); MONO % 5.8 % (2.0-8.0); NEUTROPHILS # 5.0 10^3/uL (1.5-8.5); NEUTROPHILS % 78.3 % (36.0-66.0); PLATELET COUNT, AUTOMATED 105 10^3/uL (150-450)
[2025-04-23 20:05] LABS: CK-MB VALUE MASS 1.2 NG/ML (<3.6)
[2025-04-23 20:07] LABS: ALT/SGPT 16.0 U/L (7.0-40); AST/SGOT 16.0 U/L (<34); CALCIUM LEVEL 8.6 MG/DL (8.3-10.6); CARBON DIOXIDE LEVEL 24.0 MMOL/L (20-31); CHLORIDE LEVEL 107.0 MMOL/L (98-107); CPK CREATINE PHOSPHOKINASE 38.0 U/L (46-171); CREATININE FOR GFR 1.43 MG/DL (0.70-1.30); GLOMERULAR FILTRATION RATE 50.5 (>42); MB/CK RELATIVE INDEX 3.15 (< OR =4); POTASSIUM SERUM 3.9 MMOL/L (3.5-5.1); SODIUM LEVEL 141.0 MMOL/L (136-145)
[2025-04-23] MEDS ORDERED: MORPHINE 4 MG/ML 1 ML VIAL IV PRN (20:25)
[2025-04-23] MEDS ORDERED: ISOVUE-370 76% 100 ML VIAL As Ordered ONE (20:27)
[2025-04-23] MEDS: ACETAMINOPHEN *IV* 1,000 MG in IV 1 EA IV ONE (20:31)
[2025-04-23 21:04] LABS: CK-MB VALUE MASS < 1.0 NG/ML (<3.6)
[2025-04-23 21:06] LABS: CPK CREATINE PHOSPHOKINASE 41 U/L (46-171)
[2025-04-23] MEDS: NS 500 ML IV ONE (21:35)
[2025-04-23] MEDS: LIDOCAINE 5% PATCH TD ONE (21:47)
[2025-04-23 22:00] VITALS: BP 155/68; O2SAT 99
[2025-04-23] MEDS ORDERED: LIDO1ADH93 TD (22:02)
[2025-04-23] MEDS ORDERED: VALI2TAB PO (22:07)
[2025-04-23] MEDS ORDERED: CYCL7.5T32 PO (22:09)
[2025-04-23 22:33] VITALS: TEMP 97.7
[2025-05-13] MEDS ORDERED: TAMS1CAP17 (15:00)
== END 2025-04-23 22:40 | disposition home or self-care (01) ==
LOC: M ED 19:14
DX: R10.32 Left lower quadrant pain (principal); K57.30 Diverticulosis of large intestine without perforation or abscess without bleeding; I72.3 Aneurysm of iliac artery; Z95.820 Peripheral vascular angioplasty status with implants and grafts; K21.9 Gastro-esophageal reflux disease without esophagitis; I10 Essential (primary) hypertension; E78.5 Hyperlipidemia, unspecified; F17.200 Nicotine dependence, unspecified, uncomplicated; Z79.82 Long term (current) use of aspirin; Z79.899 Other long term (current) drug therapy
CPT/HCPCS: 71045; 74177; 80048; 80076; 82150; 82550; 82553; 83605; 83690; 84484; 85025; 87486; 87581; 87633; 87798; 93005; 93041; 96365; 96366; 96375; 99285; J0131; J3360; Q9967

== ENCOUNTER → 2025-06-08 | Outpatient (CLI) | payer MEDICARE, BC ==
[~2025-06-08] MED LIST changes: +CYCL7.5T32 PO; +ISOVUE-370 76% 100 ML VIAL As Ordered ONE; +LIDO1ADH93 TD; +TAMS1CAP17; +VALI2TAB PO
== END ==
LOC: M RAD 07:02
PROVIDERS: ATTEND Student in an Organized Health Care Education/Training Program
DX: R91.8 Other nonspecific abnormal finding of lung field (principal); D69.6 Thrombocytopenia, unspecified
CPT/HCPCS: 71260; 76700; Q9967

== ENCOUNTER → 2025-06-18 | Outpatient (CLI) | payer MEDICARE, BC ==
[~2025-06-18] MED LIST changes: -ISOVUE-370 76% 100 ML VIAL As Ordered ONE
== END ==
LOC: M ADAMS 14:09
PROVIDERS: ATTEND Physician Assistant Medical
DX: M54.6 Pain in thoracic spine (principal)

== ENCOUNTER → 2025-06-26 | Outpatient (REF) | payer MEDICARE, BC ==
[2025-06-26 18:49] LABS: TOTAL PROTEIN,RANDOM URINE 164.3 MG/DL (0.0-14.0)
== END ==
LOC: M LAB REF 17:00
PROVIDERS: ATTEND Internal Medicine Nephrology
DX: R80.9 Proteinuria, unspecified (principal)